=== PATIENT | male | born 1950 | race Caucasian/White ===

== ENCOUNTER 2017-10-17 17:13 | Emergency (ER) | payer OTHER ==
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
[2017-10-17 18:00] LABS: Basophils % (A) 0 %; Eosinophils # (A) 0.1 k/uL (0-0.7); Eosinophils % (A) 1 %; HCT 38.2 % (39.0-53.0); HGB 12.8 gm/dL (13.0-17.5); Lymphocytes # (A) 1.4 k/uL (1.0-4.8); Lymphocytes % (A) 13 %; MCH 28.5 pg (25.0-35.0); MCHC 33.4 g/dL (31.0-37.0); MCV 85.4 fL (80.0-100.0); Mean Platelet Volume 6.7; Monocytes # (A) 0.4 k/uL (0-1.0); Monocytes % (A) 4 %; Neutrophils # (A) 8.7 k/uL (1.3-7.7); Neutrophils % (A) 81 %; Platelet Count 209 k/uL (150-450); RBC 4.48 m/uL (4.30-5.90); WBC 10.8 k/uL (3.8-10.6)
[2017-10-17 18:09] LABS: INR 1.5 (<1.2); Partial Thromboplastin Time 26.4 sec (22.0-30.0)
[2017-10-17 18:17] LABS: ALT 34 U/L (21-72); AST 24 U/L (17-59); Albumin 3.8 g/dL (3.5-5.0); Alkaline Phosphatase 63 U/L (38-126); Anion Gap 8 mmol/L; Blood Urea Nitrogen 27 mg/dL (9-20); Carbon Dioxide 26 mmol/L (22-30); Chloride 103 mmol/L (98-107); Creatine Kinase 76 U/L (55-170); Glucose 102 mg/dL (74-99); Potassium 3.8 mmol/L (3.5-5.1); Sodium 137 mmol/L (137-145); Total Bilirubin 0.9 mg/dL (0.2-1.3); Total Protein 6.3 g/dL (6.3-8.2)
--- NOTE | 2017-10-17 19:16 | XR ---
EXAMINATION TYPE: XR femur bilateral DATE OF EXAM: 10/17/2017 CLINICAL HISTORY: Pain There is severe narrowing of the left hip joint space with flattening of the articular surface of the femoral head. This is consistent with chronic avascular necrosis. The remainder of the left femur is intact. There is narrowing of the medial joint space of the right knee with spurring. There is narro wing of right hip joint space. There is hypertrophic acetabular spurring bilaterally. 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 Right knee joint osteoarthritis. No fracture seen.
--- NOTE | 2017-10-17 19:17 | XR ---
EXAMINATION TYPE: XR knee complete bilateral DATE OF EXAM: 10/17/2017 COMPARISON: NONE HISTORY: Knee pain TECHNIQUE: 3 views each knee FINDINGS: There is narrowing of the medial joint space left knee with spurring of femoral and tibial condyles. There is slight narrowing of the medial joint space right knee. I see no fracture nor dislo cation. There is no sign of joint effusion. IMPRESSION: Bilateral hypertrophic osteoarthritis that is more severe in the medial joint space of th e left knee. No fracture.
--- NOTE | 2017-10-17 19:18 | XR ---
EXAMINATION TYPE: XR tibia fibula LT DATE OF EXAM: 10/17/2017 COMPARISON: NONE HISTORY: Pain TECHNIQUE: 4 views FINDINGS: There is hypertrophic osteoarthritis in the medial joint space of the knee. There is spurri ng on the patella. The tibia and fibula appear intact. I see no fracture. Ankle joint is anatomic. IMPRESSION: Osteoarthritis in the left knee. No fracture.
--- NOTE | 2017-10-17 19:19 | XR ---
EXAMINATION TYPE: XR ankle complete LT DATE OF EXAM: 10/17/2017 COMPARISON: NONE HISTORY: Ankle pain TECHNIQUE: 3 views FINDINGS: There are moderate plantar and Achilles calcaneal spurs. Ankle mortise is anatomic. I see n o fracture nor dislocation. IMPRESSION: Calcaneal spurring. No fracture.
[2017-10-17 20:45] VITALS: BP 133/83; PULSE 97; RESP 16; TEMP 97.9
== END 2017-10-17 20:54 | disposition home or self-care (01) ==
LOC: EC 17:13
DX: S83.92XA Sprain of unspecified site of left knee, initial encounter (principal); S70.12XA Contusion of left thigh, initial encounter; S70.11XA Contusion of right thigh, initial encounter; Z95.0 Presence of cardiac pacemaker; W20.8XXA Other cause of strike by thrown, projected or falling object, initial encounter; Y92.89 Other specified places as the place of occurrence of the external cause
CPT/HCPCS: 36415; 80053; 82550; 85025; 85610; 85730; 99284

== ENCOUNTER → 2017-11-05 | Outpatient (CLI) | payer OTHER ==
--- NOTE | 2017-11-05 22:20 | CT ---
EXAMINATION TYPE: CT lumbar spine wo con DATE OF EXAM: 11/05/2017 COMPARISON: None HISTORY: 67-year-old male Low back pain with burning down right leg. TECHNIQUE: Contiguous axial scanning of the lumbar spine without IV contrast. Coronal and sagittal re constructions performed. CT DLP: 1821 mGycm Automated exposure control for dose reduction was used. FINDINGS: Suspect a partially visualized 3.0 cm cyst posterior left kidney rather than mass. This can be furthe r evaluated with renal ultrasound. Vertebral body heights are preserved and alignment is maintained. Some bridging anterior endplate spo ndylosis in the lower thoracic spine. Multilevel degenerative disc disease, moderate to severe at L5- S1. Hypertrophic facet arthropathy throughout. There is congenital spinal canal stenosis at additional levels of ligamentum flavum thickening, bulgi ng discs, facet arthropathy, and ligamentum flavum calcification which further narrow the spinal cheng l at multiple levels. At T12-L1, facet arthropathy contributes to mild right neuroforaminal stenosis. No significant spinal canal stenosis. At L1-L2, mild bulging disc and facet degenerative change. Changes result in mild bilateral neurofora millicent stenosis without significant spinal canal stenosis. At L2-L3, bulging disc with hypertrophic facet arthropathy. At least mild spinal canal stenosis. Ther e is also moderate left and [id number] right neuroforaminal stenosis. At L3-L4, bulging disc with congenital spinal canal stenosis, hypertrophic facet arthropathy, and thi ckened and calcified ligamentum flavum causing severe spinal canal stenosis. There is also moderate t o severe bilateral neuroforaminal stenosis. At L4-L5, bulging disc with hypertrophic facet arthropathy and thickened and calcified ligamentum fla vum. Changes result in moderate to severe spinal canal stenosis with severe left greater than right n euroforaminal stenosis. At L5-S1, posterior disc osteophyte complex with hypertrophic facet arthropathy. While there is no si gnificant spinal canal stenosis, there is severe bilateral neuroforaminal stenosis. Superior endplate Schmorl's node at L2. IMPRESSION: 1. CONGENITAL SPINAL CANAL STENOSIS WITH SUPERIMPOSED MULTILEVEL DEGENERATIVE DISC DISEASE, HYPERTROP HIC FACET ARTHROPATHY, AND LEVELS OF THICKENED AND CALCIFIED LIGAMENTUM FLAVUM. 2. CHANGES RESULT IN SEVERE SPINAL CANAL STENOSIS AT L3-L4 AND MODERATE TO SEVERE AT L4-L5. 3. AT L3-L4, THERE IS MODERATE TO SEVERE BILATERAL NEUROFORAMINAL STENOSIS, SEVERE LEFT GREATER THAN RIGHT AT L4-L5, AND SEVERE BILATERAL AT L5-S1. 4. RECOMMEND KIDNEY ULTRASOUND TO CONFIRM CYSTIC NATURE OF THE 3 CM POSTERIOR LEFT RENAL LESION.
== END | disposition home or self-care (01) ==
LOC: RADCTMAIN 16:53
DX: M48.061 Spinal stenosis, lumbar region without neurogenic claudication (principal); M99.73 Connective tissue and disc stenosis of intervertebral foramina of lumbar region; M99.74 Connective tissue and disc stenosis of intervertebral foramina of sacral region; M51.36 Other intervertebral disc degeneration, lumbar region; M46.96 Unspecified inflammatory spondylopathy, lumbar region
CPT/HCPCS: 72131

== ENCOUNTER 2017-11-06 11:49 | Inpatient (IN) | payer OTHER, MEDICARE ==
[2017-11-06] MEDS ORDERED: VANCOMYCIN 2,000 MG in SODIUM CHLORIDE 0.9% 500 ML IVPB STA (12:34)
[2017-11-06 12:36] LABS: Basophils % (A) 0 %; Eosinophils # (A) 0.1 k/uL (0-0.7); Eosinophils % (A) 1 %; HCT 39.1 % (39.0-53.0); HGB 12.1 gm/dL (13.0-17.5); Hypochromasia Slight; Lymphocytes # (A) 0.5 k/uL (1.0-4.8); Lymphocytes % (A) 3 %; MCH 27.8 pg (25.0-35.0); MCHC 30.9 g/dL (31.0-37.0); MCV 89.8 fL (80.0-100.0); Mean Platelet Volume 6.3; Monocytes # (A) 0.3 k/uL (0-1.0); Monocytes % (A) 2 %; Neutrophils # (A) 14.7 k/uL (1.3-7.7); Neutrophils % (A) 94 %; Platelet Count 246 k/uL (150-450); RBC 4.36 m/uL (4.30-5.90); RDW 14.1 % (11.5-15.5); WBC 15.7 k/uL (3.8-10.6)
[2017-11-06] MEDS ORDERED: VANCOMYCIN IV PER PHARMACY 1 EACH MISC MISCELLANE PRN (12:37)
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
[2017-11-06 12:39] LABS: ALT 45 U/L (21-72); AST 41 U/L (17-59); Albumin 3.9 g/dL (3.5-5.0); Alkaline Phosphatase 74 U/L (38-126); Anion Gap 9 mmol/L; Blood Urea Nitrogen 31 mg/dL (9-20); Calcium 9.3 mg/dL (8.4-10.2); Carbon Dioxide 25 mmol/L (22-30); Chloride 103 mmol/L (98-107); Glucose 123 mg/dL (74-99); Potassium 4.5 mmol/L (3.5-5.1); Sodium 137 mmol/L (137-145); Total Bilirubin 0.9 mg/dL (0.2-1.3); Total Protein 6.7 g/dL (6.3-8.2)
[2017-11-06 12:40] LABS: INR 3.6 (<1.2); Partial Thromboplastin Time 33.4 sec (22.0-30.0); Prothrombin Time 32.6 sec (9.0-12.0)
[2017-11-06 12:46] LABS: Creatine Kinase 24 U/L (55-170)
[2017-11-06 13:00] LABS: Creatine Kinase MB 0.6 ng/mL (0.0-2.4); Troponin I <0.012 ng/mL (0.000-0.034)
[2017-11-06] MEDS: DILTIAZEM 50 MG in SODIUM CHLORIDE 0.9% 40 ML IV SCH ×3 (13:07→21:06)
--- NOTE | 2017-11-06 13:07 | XR ---
EXAMINATION TYPE: XR chest 2V DATE OF EXAM: 11/06/2017 COMPARISON: NONE TECHNIQUE: PA and lateral views submitted. HISTORY: difficulty breathing FINDINGS: The lungs are clear and there is no pneumothorax, pleural effusion, or focal pneumonia. Subsegmenta l changes at the right lung base with elevated right hemidiaphragm. Cardiac device noted and there is arthropathy of the shoulders. IMPRESSION: 1. Right basilar atelectasis or early infiltrate. 2. Cardiomegaly
--- NOTE | 2017-11-06 13:29 | XR ---
EXAMINATION TYPE: XR tibia fibula RT DATE OF EXAM: 11/06/2017 COMPARISON: NONE HISTORY: Pain TECHNIQUE: Two views are submitted. FINDINGS: The osseous structures are intact. Arthropathy of the knee joint.. Soft tissue calcifications noted. No destructive changes. Soft tissue edema noted. IMPRESSION: 1. No acute osseous abnormality. Diffuse soft tissue edema.
[2017-11-06] MEDS ORDERED: oxyCODONE-APAP 10-325MG 1 EACH TAB PO STA (14:00)
[2017-11-06] MEDS ORDERED: CEFEPIME 2 GM in SODIUM CHLORIDE 0.9% 50 ML IVPB STA (14:11)
[2017-11-06] MEDS ORDERED: AZITHROMYCIN 500 MG in DEXTROSE 5% IN WATER 250 ML IVPB STA ×2 (14:11)
[2017-11-06] MEDS ORDERED: ONDANSETRON 4 MG/2 ML VIAL IVP PRN (14:14)
[2017-11-06] MEDS ORDERED: NALOXONE 0.4 MG/ML 1 ML VIAL IV PRN (14:14)
[2017-11-06] MEDS: SODIUM CHLORIDE 0.9% 1,000 ML IV SCH ×2 (14:24→21:07)
[2017-11-06] MEDS: oxyCODONE-APAP 5-325MG 1 EACH TAB PO PRN (20:31)
[2017-11-06] MEDS ORDERED: OXYMETAZOLINE 0.05% NASL SPRAY 1 SPRAY BOTTLE NASAL PRN (20:52)
[2017-11-06] MEDS: VANCOMYCIN 2,250 MG in SODIUM CHLORIDE 0.9% 500 ML IVPB SCH (21:06)
[2017-11-06] MEDS: METOPROLOL TARTRATE 25 MG TAB PO SCH (21:09)
--- NOTE | 2017-11-06 23:10 | P.HPIM ---
History of Present Illness H&P Date: 11/06/17 Chief Complaint: Shortness of breath Patient is a 67-year-old male with a known history of paroxysmal atrial fibrillation since 2016 on anticoagulation with Coumadin, sick sinus syndrome status post pacemaker placement in 2016, lumbar disc degenerative disease and multiple other medical problems came to the hospital with complaints of shortness of breath. Patient has been having issues with atrial fibrillation for the past 6-7 weeks and is scheduled for cardioversion on 11/08/2017. Last night patient became greenish and was having worsening shortness of breath. Shortness of breath gets worse with leaning over. Patient has been hyperventilating and shaky and felt very cold. Patient came to the hospital by his . Patient also reports pain and warmth to his right lower extremity. He states that he had a limited traumatic accident 3 weeks ago while repairing under the car.. Denies any constitutional symptoms. Denies any chest pain. No nausea vomiting or abdominal pain. EKG showed atrial flutter with 2-1 conduction Chest x-ray right basilar atelectasis or early infiltrate X-ray of right lower extremity no acute osseous abnormality. Diffuse soft tissue edema. WBC 15.7, INR 3.6 and lactic acid 2.2 Review of Systems Constitutional: Patient did have shakiness and felt cold. No fever. No generalized weakness or weight loss. Abdomen: Patient denied nausea vomiting and diarrhea and abdominal pain. Cardiovascular: Patient denies any chest pain. patient does have shortness of breath and palpitations. Respiratory: patient denied any cough is from production. No shortness of breath Neurologic: Patient denied any numbness or tingling headache. Musculoskeletal: Patient denies any complaints of joint swelling or deformity. Right lower extremities swelling. Skin: Negative Psychiatric: Negative Endocrine: No heat or cold intolerance. No recent weight gain. Genitourinary: No dysuria or hematuria. All other 14 point ROS negative except the above Past Medical History Past Medical History: Atrial Fibrillation, Hypertension Additional Past Medical History / Comment(s): Paroxysmal Afib since 2016 but pt states last 7 weeks has been constant afib/was to have cardioversion on 11/12/17, has AICD/pacer and pt states that the bottom lead on device is NOT MRI SAFE, leaky heart valve, 10/17/17 bilateral leg injuries d/t truck on hoist falling down on legs/bilateral leg wounds healing and has knee pain-told he will need L knee replacement-has been receiving injections, chronic low back pain/spinal stenosis/crushed discs d/t accident and since August 2017 has been having burning pain/edema down R leg and had cat scan yesterday d/t this, after back surgery d/ t this injury pt had to learn to walk again, "bird flu" in 2016-had bilateral pneumonias-lengthy hospitalization-was in ICU on bipap and it damaged his lungs , sinusitis History of Any Multi-Drug Resistant Organisms: None Reported Past Surgical History: Back Surgery, Pacemaker, Tonsillectomy Additional Past Surgical History / Comment(s): AICD/pacer, 1988 back surgery d/ t injury, 2015 bronchoscopy with lavage, deviated septum surgery, cyst removed from back Past Anesthesia/Blood Transfusion Reactions: No Reported Reaction Type of Cardiac Device: Permanent Pacemaker, AICD Device Placement Date:: 12/07/15 Smoking Status: Never smoker - Past Family History Father Family Medical History: No Reported History Additional Family Medical History / Comment(s): Father lived to be 92 yrs old. Mother Family Medical History: Memory Impairment Additional Family Medical History / Comment(s): Mother is 99 years old-will be 100 next week and still lives alone. She has alittle short term memory problems. Medications and Allergies Home Medications Medication Instructions Recorded Confirmed Type Losartan [Cozaar] 25 mg PO BID 10/17/17 11/06/17 History Metoprolol Tartrate [Lopressor] 25 mg PO BID 10/17/17 11/06/17 History Naproxen 500 mg PO BID PRN 10/17/17 11/06/17 History Warfarin [Coumadin] 5 mg PO SUWE 10/17/17 11/06/17 History oxyCODONE-APAP 5-325MG [Percocet 1 tab PO TID PRN 10/17/17 11/06/17 History 5-325 mg] Furosemide [Lasix] 20 mg PO BID 11/06/17 11/06/17 History Potassium Chloride ER [K-Dur 10] 10 meq PO DAILY 11/06/17 11/06/17 History Warfarin [Coumadin] 5 mg PO DIRECTED 11/06/17 11/06/17 History Allergies Allergy/AdvReac Type Severity Reaction Status Date / Time No Known Allergies Allergy Verified 11/06/17 12:14 Physical Exam Vitals: Vital Signs Temp Pulse Pulse Resp BP BP Pulse Ox 11/06/17 20:00 99.2 F 140 H 22 108/74 100 11/06/17 18:30 99.1 F 138 H 16 123/84 96 11/06/17 18:18 98.1 F 137 H 19 117/73 99 11/06/17 16:00 138 H 18 120/88 97 11/06/17 15:00 138 H 18 108/69 96 11/06/17 14:00 138 H 18 121/74 97 11/06/17 13:50 140 H 18 127/77 99 11/06/17 13:09 141 H 22 124/74 99 11/06/17 11:54 99.1 F 141 H 20 146/86 99 Intake and Output 11/06/17 11/06/17 11/06/17 06:59 14:59 22:59 Intake Total 79.833 Balance 79.833 Intake: Intake, IV Titration 79.833 Amount Diltiazem 50 mg In Sodium 79.833 Chloride 0.9% 40 ml @ 10 MG/HR 10 mls/hr IV .Q5H [facility] Rx#:[id number] Other: Voiding Method Urinal Weight 136.078 kg Results CBC & Chem 7: 11/06/17 12:12 11/06/17 12:12 Labs: Abnormal Lab Results - Last 24 Hours (Table) 11/06/17 11/06/17 11/06/17 Range/Units 12:12 12:12 12:12 WBC 15.7 H (3.8-10.6) k/uL Hgb 12.1 L (13.0-17.5) gm/dL MCHC 30.9 L (31.0-37.0) g/dL Neutrophils # 14.7 H (1.3-7.7) k/uL Lymphocytes # 0.5 L (1.0-4.8) k/uL PT (9.0-12.0) sec INR (<1.2) APTT (22.0-30.0) sec BUN 31 H (9-20) mg/dL Glucose 123 H (74-99) mg/dL Plasma Lactic Acid Jimenez (0.7-2.0) mmol/L Total Creatine Kinase 24 L (55-170) U/L 11/06/17 11/06/17 Range/Units 12:12 20:46 WBC (3.8-10.6) k/uL Hgb (13.0-17.5) gm/dL MCHC (31.0-37.0) g/dL Neutrophils # (1.3-7.7) k/uL Lymphocytes # (1.0-4.8) k/uL PT 32.6 H (9.0-12.0) sec INR 3.6 H (<1.2) APTT 33.4 H (22.0-30.0) sec BUN (9-20) mg/dL Glucose (74-99) mg/dL Plasma Lactic Acid Jimenez 2.1 H* (0.7-2.0) mmol/L Total Creatine Kinase (55-170) U/L Thrombosis Risk Factor Assmnt - DVT/VTE Prophylaxis DVT/VTE Prophylaxis: Pharmacologic Prophylaxis ordered - Choose All That Apply Any of the Below Risk Factors Present?: Yes Each Factor Represents 1 point: Obesity (BMI >25) Other Risk Factors: Yes Each Risk Factor Represents 2 Points: Age 61-74 years Other congenital or acquired thrombophilia - If yes, enter type in comment: No Thrombosis Risk Factor Assessment Total Risk Factor Score: 3 Thrombosis Risk Factor Assessment Level: Moderate Risk Assessment and Plan Assessment: Atrial fibrillation with rapid regular rate Atrial flutter with 2:1 conduction Sepsis secondary to right lower activity cellulitis with recent trauma Paroxysmal atrial fibrillation on anticoagulation with warfarin Supratherapeutic INR level III.6 Chronic lower back pain, spinal stenosis and compressive disc due to accident Sick Sinus syndrome. Status post pacemaker placement Morbid obesity BMI 43.0 plan: Patient is currently started on Cardizem drip. Patient was given a dose of vancomycin and cefepime while in the ER. We will continue the vancomycin and follow up closely. Continue the pain medication with Percocet 5. Continue the telemetry monitoring. Cardiology was consulted. Further recommendations based on the clinical course. Prognosis is guarded. Discussed with the patient and his at bedside in detail. Time with Patient: Greater than 30
[2017-11-07 00:54] LABS: Glucose,Whole Blood 127 mg/dL (75-99)
[2017-11-07] MEDS: DILTIAZEM 50 MG in SODIUM CHLORIDE 0.9% 40 ML IV SCH ×4 (04:07→21:03)
[2017-11-07] MEDS: Acetaminophen-Codeine 300-30mg TAB PO PRN (04:10)
[2017-11-07 06:23] LABS: Basophils % (A) 0 %; Eosinophils % (A) 0 %; HCT 35.7 % (39.0-53.0); HGB 11.1 gm/dL (13.0-17.5); Hypochromasia Moderate; Lymphocytes # (A) 0.6 k/uL (1.0-4.8); Lymphocytes % (A) 5 %; MCH 28.5 pg (25.0-35.0); MCV 91.8 fL (80.0-100.0); Mean Platelet Volume 6.3; Monocytes # (A) 0.4 k/uL (0-1.0); Monocytes % (A) 4 %; Neutrophils # (A) 10.3 k/uL (1.3-7.7); Neutrophils % (A) 90 %; Platelet Count 195 k/uL (150-450); RBC 3.89 m/uL (4.30-5.90); WBC 11.5 k/uL (3.8-10.6)
[2017-11-07 06:43] LABS: Anion Gap 6 mmol/L; Blood Urea Nitrogen 27 mg/dL (9-20); Calcium 8.5 mg/dL (8.4-10.2); Carbon Dioxide 24 mmol/L (22-30); Chloride 105 mmol/L (98-107); Glucose 120 mg/dL (74-99); Magnesium 1.8 mg/dL (1.6-2.3); Potassium 4.1 mmol/L (3.5-5.1); Sodium 135 mmol/L (137-145)
[2017-11-07] MEDS: SODIUM CHLORIDE 0.9% 1,000 ML IV SCH ×3 (06:45→15:45)
[2017-11-07] MEDS: VANCOMYCIN 2,250 MG in SODIUM CHLORIDE 0.9% 500 ML IVPB SCH ×2 (08:32→21:04)
[2017-11-07] MEDS: METOPROLOL TARTRATE 25 MG TAB PO SCH ×3 (08:33→21:02)
--- NOTE | 2017-11-07 10:53 | P.CRDCN ---
History of Present Illness Consult date: 11/07/17 Requesting physician: Bailey Turcios Reason for Consult (text): atrial flutter Chief complaint: Shortness of breath, fever or chills History of present illness: This is a pleasant 67-year-old gentleman who follows with Dr. Curry in the office. He has a known history of hypertension, hyperlipidemia, nicotine dependence, prior pacemaker implantation, most recent Eve scan stress test according to the office note was performed in April of this year which revealed a small anterior scar no evidence of any reversible ischemia paroxysmal atrial fibrillation, according to the patient is been persistently in atrial fibrillation for the past several weeks and is scheduled to undergo cardioversion by Dr. Curry next week. Pacemaker was interrogated in the office and did confirm that the patient is in fact continuously in A. fib with a heart rate of 120 to 1:30. He presents to the hospital on this occasion with symptoms of shortness of breath with associated fever and chills. Chest x-ray on admission showed right basilar atelectasis and early infiltrate. X-ray of the tibial and fibula was performed which did not reveal any acute osseous abnormality. Diffuse soft tissue edema noted. EKG on presentation here showed typical atrial flutter with a rapid ventricular response. I pressure 130/80 with a heart rate in the 140s, 98% on 2 L of oxygen. Temperature on arrival 99.1, it did go up to 100.3, 97.5 this morning. Blood cell count 15.7 on admission, 11.5 this morning, hemoglobin 11.1, platelet count 195. INR 3.6. Sodium 135, potassium 4.1, BUN 27, creatinine 0.7. Magnesium level I.8. Troponin 0.012. At the time of my examination this morning, patient states she still feels mildly short of breath, he has significant bilateral peripheral edema with evidence of possible cellulitis on the right baer area as well as the upper right thigh area near the groin. Past Medical History Past Medical History: Atrial Fibrillation, Hypertension Additional Past Medical History / Comment(s): Paroxysmal Afib since 2015 but pt states last 7 weeks has been constant afib/was to have cardioversion on 11/12/17, has AICD/pacer and pt states that the bottom lead on device is NOT MRI SAFE, leaky heart valve, 10/17/17 bilateral leg injuries d/t truck on hoist falling down on legs/bilateral leg wounds healing and has knee pain-told he will need L knee replacement-has been receiving injections, chronic low back pain/spinal stenosis/crushed discs d/t accident and since August 2017 has been having burning pain/edema down R leg and had cat scan yesterday d/t this, after back surgery d/ t this injury pt had to learn to walk again, "bird flu" in 2016-had bilateral pneumonias-lengthy hospitalization-was in ICU on bipap and it damaged his lungs , sinusitis History of Any Multi-Drug Resistant Organisms: None Reported Past Surgical History: Back Surgery, Pacemaker, Tonsillectomy Additional Past Surgical History / Comment(s): AICD/pacer, 1988 back surgery d/ t injury, 2015 bronchoscopy with lavage, deviated septum surgery, cyst removed from back Past Anesthesia/Blood Transfusion Reactions: No Reported Reaction Type of Cardiac Device: Permanent Pacemaker, AICD Device Placement Date:: 12/07/15 Smoking Status: Never smoker - Past Family History Father Family Medical History: No Reported History Additional Family Medical History / Comment(s): Father lived to be 92 yrs old. Mother Family Medical History: Memory Impairment Additional Family Medical History / Comment(s): Mother is 99 years old-will be 100 next week and still lives alone. She has alittle short term memory problems. Medications and Allergies Home Medications Medication Instructions Recorded Confirmed Type Losartan [Cozaar] 25 mg PO BID 10/17/17 11/06/17 History Metoprolol Tartrate [Lopressor] 25 mg PO BID 10/17/17 11/06/17 History Naproxen 500 mg PO BID PRN 10/17/17 11/06/17 History Warfarin [Coumadin] 5 mg PO SUWE 10/17/17 11/06/17 History oxyCODONE-APAP 5-325MG [Percocet 1 tab PO TID PRN 10/17/17 11/06/17 History 5-325 mg] Furosemide [Lasix] 20 mg PO BID 11/06/17 11/06/17 History Potassium Chloride ER [K-Dur 10] 10 meq PO DAILY 11/06/17 11/06/17 History Warfarin [Coumadin] 5 mg PO DIRECTED 11/06/17 11/06/17 History Allergies Allergy/AdvReac Type Severity Reaction Status Date / Time No Known Allergies Allergy Verified 11/06/17 12:14 Physical Exam Vitals: Vital Signs Temp Pulse Pulse Resp BP BP Pulse Ox 11/07/17 08:36 97.5 F L 138 H 16 129/85 98 11/07/17 04:00 100.3 F H 140 H 19 130/89 98 11/07/17 00:00 98.6 F 131 H 20 124/75 98 11/06/17 20:00 99.2 F 140 H 22 108/74 100 11/06/17 18:30 99.1 F 138 H 16 123/84 96 11/06/17 18:18 98.1 F 137 H 19 117/73 99 11/06/17 16:00 138 H 18 120/88 97 11/06/17 15:00 138 H 18 108/69 96 11/06/17 14:00 138 H 18 121/74 97 11/06/17 13:50 140 H 18 127/77 99 11/06/17 13:09 141 H 22 124/74 99 11/06/17 11:54 99.1 F 141 H 20 146/86 99 Intake and Output 11/06/17 11/07/17 11/07/17 22:59 06:59 14:59 Intake Total 79.833 50 0 Output Total 350 Balance 79.833 -300 0 Intake: Intake, IV Titration 79.833 50 Amount Diltiazem 50 mg In Sodium 79.833 50 Chloride 0.9% 40 ml @ 10 MG/HR 10 mls/hr IV .Q5H [facility] Rx#:[id number] Oral 0 Output: Urine 350 Other: Voiding Method Urinal Urinal Urinal # Voids 0 3 Weight 135.5 kg PHYSICAL EXAMINATION: GENERAL: 87-year-old gentleman in no acute distress at the time of my examination HEENT: Head is atraumatic, normocephalic. Pupils equal, round. Sclera anicteric. Conjunctiva are clear. Mucous membranes of the mouth are moist. Neck is supple. There is no elevated jugular venous pressure. No carotid bruit is heard. HEART EXAMINATION: R S1 and S2 irregularly irregular a systolic murmur is heard. CHEST EXAMINATION: His reveal diminished air entry to bilateral bases. ABDOMEN: Soft, obese, nontender. Bowel sounds are heard. No organomegaly noted. EXTREMITIES:[ 1+ peripheral pulses with 2+ evidence of peripheral edema , significant redness in the right baer and right thigh and groin area NEUROLOGIC patient is awake, alert and oriented X3. . Results 11/07/17 06:04 11/07/17 06:04 Cardiac Enzymes 11/06/17 11/06/17 Range/Units 12:12 12:12 AST 41 (17-59) U/L CK-MB (CK-2) 0.6 (0.0-2.4) ng/mL Troponin I <0.012 (0.000-0.034) ng/mL Coagulation 11/06/17 Range/Units 12:12 PT 32.6 H (9.0-12.0) sec APTT 33.4 H (22.0-30.0) sec CBC 11/06/17 11/07/17 Range/Units 12:12 06:04 WBC 15.7 H 11.5 H (3.8-10.6) k/uL RBC 4.36 3.89 L (4.30-5.90) m/uL Hgb 12.1 L 11.1 L (13.0-17.5) gm/dL Hct 39.1 35.7 L (39.0-53.0) % Plt Count 246 195 (150-450) k/uL Comprehensive Metabolic Panel 11/06/17 11/07/17 Range/Units 12:12 06:04 Sodium 137 135 L (137-145) mmol/L Potassium 4.5 4.1 (3.5-5.1) mmol/L Chloride 103 105 (98-107) mmol/L Carbon Dioxide 25 24 (22-30) mmol/L BUN 31 H 27 H (9-20) mg/dL Creatinine 0.70 0.70 (0.66-1.25) mg/dL Glucose 123 H 120 H (74-99) mg/dL Calcium 9.3 8.5 (8.4-10.2) mg/dL AST 41 (17-59) U/L ALT 45 (21-72) U/L Alkaline Phosphatase 74 (38-126) U/L Total Protein 6.7 (6.3-8.2) g/dL Albumin 3.9 (3.5-5.0) g/dL Current Medications Generic Name Dose Route Start Last Admin Trade Name Freq PRN Reason Stop Dose Admin Acetaminophen/Codeine Phosphate 1 each 11/06/17 14:14 11/07/17 04:10 Tylenol #3 PO 1 each Q4HR PRN Administration Moderate Pain Diltiazem HCl 50 mg/ Sodium 50 mls @ 10 mls/hr 11/06/17 12:45 11/07/17 04:07 Chloride IV 10 mg/hr .Q5H [facility] 10 mls/hr Administration 10 MG/HR Sodium Chloride 1,000 mls @ 20 mls/hr 11/06/17 14:15 11/07/17 06:45 Saline 0.9% IV 20 mls/hr .Q24H [facility] Administration Vancomycin HCl 2,250 mg/ 500 mls @ 167 mls/hr 11/06/17 21:00 11/07/17 08:32 Sodium Chloride IVPB 167 mls/hr Q12HR [facility] Administration Sodium Chloride 1,000 mls @ 100 mls/hr 11/06/17 21:00 11/07/17 06:45 Saline 0.9% IV 100 mls/hr .Q10H [facility] Administration Metoprolol Tartrate 25 mg 11/06/17 21:00 11/07/17 08:33 Lopressor PO 25 mg BID [facility] Administration Naloxone HCl 0.2 mg 11/06/17 14:14 Narcan IV Q2M PRN Opioid Reversal Ondansetron HCl 4 mg 11/06/17 14:14 Zofran IVP Q8HR PRN Nausea And Vomiting Oxycodone/Acetaminophen 1 each 11/06/17 14:14 11/06/17 20:31 Percocet 5-325 PO 1 each Q4HR PRN Administration Severe Pain Oxymetazoline HCl 2 spray 11/06/17 20:52 11/07/17 00:43 Afrin 0.05% Nasal [place] NASAL 2 spray BID PRN Administration Sinus Symptoms Intake and Output 11/06/17 11/07/17 11/07/17 22:59 06:59 14:59 Intake Total 79.833 50 0 Output Total 350 Balance 79.833 -300 0 Intake: Intake, IV Titration 79.833 50 Amount Diltiazem 50 mg In Sodium 79.833 50 Chloride 0.9% 40 ml @ 10 MG/HR 10 mls/hr IV .Q5H [facility] Rx#:[id number] Oral 0 Output: Urine 350 Other: Voiding Method Urinal Urinal Urinal # Voids 0 3 Weight 135.5 kg 11/07/17 06:04 11/07/17 06:04 EKG Interpretations (text) EKG shows atrial flutter with rapid ventricular response Assessment and Plan Plan: Assessment and plan #1 atrial flutter with rapid ventricular response #2 history of paroxysmal atrial fibrillation, according to recent device check in the office, patient has chronically been in A. fib with a heart rate in the 120s for the past several weeks. On Coumadin for anticoagulation, INR 3.6 #3 sepsis, likely secondary to cellulitis of the right lower extremity #4 hypertension #5 hyperlipidemia #6 history of pacemaker implantation, dual-chamber Biotronik for sick sinus syndrome in 2016 #7 obesity Plan We will obtain an echocardiogram with Doppler study. Patient has also been initiated on IV antibiotics for his cellulitis. He is currently on IV Cardizem at 10 mg per hour, as well as metoprolol 25 mg by mouth twice a day. We will increase the metoprolol for more optimal heart rate control. Check TSH level. Obtain BNP. We will also speak with Dr. Curry regarding the timing of the cardioversion, further recommendations to follow. DNP note has been reviewed, I agree with a documented findings and plan of care. Patient was seen and examined.
[2017-11-07] MEDS: oxyCODONE-APAP 5-325MG 1 EACH TAB PO PRN ×2 (12:27→21:10)
--- NOTE | 2017-11-07 12:27 | ECHOF ---
Referral Reason:afib MEASUREMENTS -------- HEIGHT: 152.4 cm WEIGHT: 135.2 kg BP: RVIDd: 3.5 cm (< 3.3) IVSd: 1.3 cm (0.6 - 1.1) LVIDd: 4.6 cm (3.9 - 5.3) LVPWd: 1.5 cm (0.6 - 1.1) IVSs: 1.6 cm LVIDs: 4.2 cm LVPWs: 1.4 cm LA Diam: 3.6 cm (2.7 - 3.8) Ao Diam: 3.3 cm (2.0 - 3.7) AV Cusp: 2.1 cm (1.5 - 2.6) LA Diam: 3.6 cm (2.7 - 3.8) MV EXCURSION: 26.551 mm (> 18.000) MV EF SLOPE: 169 mm/s (70 - 150) EPSS: 0.4 cm RAP: 5.00 mmHg RVSP: 29.66 mmHg FINDINGS -------- Resting tachycardia (HR>100bpm). Morbid Obesity This was a techncally difficult study with suboptimal views, , Lumason utilized for enhancement of images. The left ventricular size is normal. There is moderate concentric left ventricular hypertrophy. T here is severe global hypokinesis of LV . Overall left ventricular systolic function is severely im paired with, an EF between 20 - 25 %. The right ventricle is normal in size. The left atrium is moderately dilated. The right atrial size is normal. 5.0mg OF Lumason UTLIZED: 2 OR MORE WALL SEGMENTS NOT VISUALIZED. The aortic valve is trileaflet, and appears structurally normal. No aortic stenosis or regurgitation. The mitral valve was not well visualized. Mild mitral regurgitation is present. Mild tricuspid regurgitation present. There is no evidence of pulmonary hypertension. The right v entricular systolic pressure, as measured by Doppler, is 29.66mmHg. The pulmonic valve was not well visualized. Trace/mild (physiologic) pulmonic regurgitation. The aortic root size is normal. There is no pericardial effusion. CONCLUSIONS -------- 1. Resting tachycardia (HR>100bpm). 2. Morbid Obesity 3. This was a techncally difficult study with suboptimal views, , Lumason utilized for enhancement of images. 4. The left ventricular size is normal. 5. There is moderate concentric left ventricular hypertrophy. 6. There is severe global hypokinesis of LV . 7. Overall left ventricular systolic function is severely impaired with, an EF between 20 - 25 %. 8. The left atrium is moderately dilated. 9. 5.0mg OF Lumason UTLIZED: 2 OR MORE WALL SEGMENTS NOT VISUALIZED. 10. The aortic valve is trileaflet, and appears structurally normal. No aortic stenosis or regurgitat ion. 11. Mild mitral regurgitation is present. 12. Mild tricuspid regurgitation present. 13. There is no evidence of pulmonary hypertension. 14. Trace/mild (physiologic) pulmonic regurgitation. 15. The aortic root size is normal. 16. There is no pericardial effusion. MILK CONDENSER: Yolande Mahoney RDCS
[2017-11-07 12:46] LABS: INR 2.6 (<1.2); Prothrombin Time 23.4 sec (9.0-12.0)
[2017-11-07] MEDS ORDERED: PROPOFOL 10 MG/ML 20 ML VIAL IV ONE (13:45)
--- NOTE | 2017-11-07 14:17 | CE ---
CARDIAC ELECTROPHYSIOLOGY REPORT DATE OF SERVICE: 11/07/2017 PERFORMING PHYSICIAN: Nicko Rush MD PROCEDURE PERFORMED: Cardioversion. INDICATION: This is a pleasant 67-year-old gentleman who presented to the hospital with shortness of breath and was found to be in atrial fibrillation with RVR as well as congestive heart failure. He is known to have paroxysmal atrial fibrillation, on oral anticoagulation was Coumadin and Coumadin and the INR was therapeutic. He also does have a pacemaker. COMPLICATION: None. The procedure was performed under general anesthesia. PROCEDURE DESCRIPTION: General anesthesia was initiated using propofol with SWITCH TECHNICIAN as well as anesthesiologist in the room. Subsequently, we cardioverted the patient from atrial fibrillation to normal sinus mechanism using 100 joules on first attempt. CONCLUSION: Successful cardioversion of atrial flutter/atrial fibrillation to normal sinus mechanism using 100 joules on first attempt. MMODL / IJN: [id number] /
[2017-11-07] MEDS ORDERED: WARFARIN 5 MG TAB PO SCH ×3 (18:00→21:02)
[2017-11-07] MEDS ORDERED: ALPRAZolam 0.25 MG TAB PO PRN (21:01)
--- NOTE | 2017-11-07 23:40 | P.PN ---
Subjective Progress Note Date: 11/07/17 Principal diagnosis: Atrial fibrillation with RVR Right lower extremity cellulitis Patient is a 67-year-old male with a known history of paroxysmal atrial fibrillation since 2016 on anticoagulation with Coumadin, sick sinus syndrome status post pacemaker placement in 2016, lumbar disc degenerative disease and multiple other medical problems came to the hospital with complaints of shortness of breath. Patient has been having issues with atrial fibrillation for the past 6-7 weeks and is scheduled for cardioversion on 11/08/2017. Last night patient became greenish and was having worsening shortness of breath. Shortness of breath gets worse with leaning over. Patient has been hyperventilating and shaky and felt very cold. Patient came to the hospital by his . Patient also reports pain and warmth to his right lower extremity. He states that he had a limited traumatic accident 3 weeks ago while repairing under the car.. Denies any constitutional symptoms. Denies any chest pain. No nausea vomiting or abdominal pain. EKG showed atrial flutter with 2-1 conduction Chest x-ray right basilar atelectasis or early infiltrate X-ray of right lower extremity no acute osseous abnormality. Diffuse soft tissue edema. WBC 15.7, INR 3.6 and lactic acid 2.2 11/07/2017 Patient denied any comes of chest pain. Shortness of breath is improved. Patient underwent cardioversion with successful conversion to sinus rhythm. Heart rate is controlled. 2-D echocardiogram Showed ejection fraction 20 to 25% . No nausea vomiting or abdominal pain. Right lower extremity swelling is improving as well. No other acute overnight issues. Objective - Vital Signs Vital signs: Vital Signs Temp 97.7 F 11/07/17 12:01 Pulse 81 11/07/17 14:32 Resp 16 11/07/17 14:32 BP 109/57 11/07/17 14:32 Pulse Ox 98 11/07/17 14:32 Intake & Output 11/06/17 11/07/17 11/07/17 18:59 06:59 18:59 Intake Total 34 95.833 0 Output Total 350 Balance 34 -254.167 0 Weight 136.078 kg 135.5 kg Intake: Intake, IV Titration 34 95.833 Amount Diltiazem 50 mg In Sodium 34 95.833 Chloride 0.9% 40 ml @ 10 MG/HR 10 mls/hr IV .[facility] Rx#:[id number] Oral 0 Output: Urine 350 Other: Voiding Method Urinal Urinal # Voids 3 - Exam PHYSICAL EXAMINATION: Patient is lying in the bed comfortably, no acute distress, awake alert and oriented.. HEENT: Normocephalic. Neck is supple. Pupils reactive. Nostrils clear. Oral cavity is moist. Ears reveal no drainage. Neck reveals no JVD, carotid bruits, or thyromegaly. CHEST EXAMINATION: Trachea is central. Symmetrical expansion. Lung lebron clear to auscultation and percussion. CARDIAC: Normal S1, S2 with no gallops. No murmurs ABDOMEN: Soft. Bowel sounds normal. No organomegaly. No abdominal bruits. Extremities: Right lower extremity redness and swelling with scar fine at the time Left lower extremity having wound lacerations healing well. Neurologically awake, alert, oriented x3 with well-coordinated movements. No focal deficits noted Skin: No rash or skin lesions. Psychiatric: Coperative. Nonsuicidal Musculoskeletal: No joint swelling or deformity. Normal range of motion. - Labs CBC & Chem 7: 11/07/17 06:04 11/07/17 06:04 Labs: Abnormal Lab Results - Last 24 Hours (Table) 11/06/17 11/07/17 11/07/17 Range/Units 20:46 00:50 06:04 WBC (3.8-10.6) k/uL RBC (4.30-5.90) m/uL Hgb (13.0-17.5) gm/dL Hct (39.0-53.0) % Neutrophils # (1.3-7.7) k/uL Lymphocytes # (1.0-4.8) k/uL PT (9.0-12.0) sec INR (<1.2) Sodium 135 L (137-145) mmol/L BUN 27 H (9-20) mg/dL Glucose 120 H (74-99) mg/dL POC Glucose (mg/dL) 127 H (75-99) mg/dL Plasma Lactic Acid Jimenez 2.1 H* (0.7-2.0) mmol/L 11/07/17 11/07/17 11/07/17 Range/Units 06:04 06:04 12:23 WBC 11.5 H (3.8-10.6) k/uL RBC 3.89 L (4.30-5.90) m/uL Hgb 11.1 L (13.0-17.5) gm/dL Hct 35.7 L (39.0-53.0) % Neutrophils # 10.3 H (1.3-7.7) k/uL Lymphocytes # 0.6 L (1.0-4.8) k/uL PT 23.4 H (9.0-12.0) sec INR 2.6 H (<1.2) Sodium (137-145) mmol/L BUN (9-20) mg/dL Glucose (74-99) mg/dL POC Glucose (mg/dL) (75-99) mg/dL Plasma Lactic Acid Jimenez 0.6 L (0.7-2.0) mmol/L Microbiology - Last 24 Hours (Table) 11/06/17 12:12 Blood Culture Gram Stain - Preliminary Blood 11/06/17 12:12 Blood Culture - Final Blood Assessment and Plan Assessment: Atrial fibrillation with rapid regular rate. Off Cardizem drip. Status post cardioversion. Currently in sinus rhythm. Atrial flutter with 2:1 conduction Sepsis secondary to right lower activity cellulitis with recent trauma Paroxysmal atrial fibrillation on anticoagulation with warfarin Supratherapeutic INR level III.6 Chronic lower back pain, spinal stenosis and compressive disc due to accident Sick Sinus syndrome. Status post pacemaker placement Morbid obesity BMI 43.0 plan: Patient is currently started on Cardizem drip. Patient was given a dose of vancomycin and cefepime while in the ER. We will continue the vancomycin and follow up closely. Continue the pain medication with Percocet 5. Continue the telemetry monitoring. Coumadin was restarted. Cardiology was consulted. Further recommendations based on the clinical course. Prognosis is guarded. Discussed with the patient and his at bedside in detail. Time with Patient: Greater than 30
[2017-11-08] MEDS: Acetaminophen-Codeine 300-30mg TAB PO PRN ×3 (05:42→23:23)
[2017-11-08 06:20] LABS: Basophils % (A) 0 %; Eosinophils # (A) 0.1 k/uL (0-0.7); Eosinophils % (A) 1 %; HCT 37.2 % (39.0-53.0); HGB 11.7 gm/dL (13.0-17.5); Hypochromasia Slight; Lymphocytes % (A) 8 %; MCH 28.1 pg (25.0-35.0); MCHC 31.4 g/dL (31.0-37.0); MCV 89.5 fL (80.0-100.0); Mean Platelet Volume 6.8; Monocytes # (A) 0.5 k/uL (0-1.0); Monocytes % (A) 5 %; Neutrophils # (A) 9.9 k/uL (1.3-7.7); Neutrophils % (A) 85 %; Platelet Count 199 k/uL (150-450); RBC 4.15 m/uL (4.30-5.90); RDW 13.8 % (11.5-15.5); WBC 11.7 k/uL (3.8-10.6)
[2017-11-08 06:29] LABS: Anion Gap 7 mmol/L; Blood Urea Nitrogen 26 mg/dL (9-20); Calcium 8.8 mg/dL (8.4-10.2); Carbon Dioxide 24 mmol/L (22-30); Chloride 105 mmol/L (98-107); Glucose 122 mg/dL (74-99); Potassium 4.4 mmol/L (3.5-5.1); Sodium 136 mmol/L (137-145)
[2017-11-08] MEDS: METOPROLOL TARTRATE 25 MG TAB PO SCH ×3 (07:45→20:52)
[2017-11-08] MEDS: WARFARIN 5 MG TAB PO SCH ×3 (07:46→18:47)
[2017-11-08] MEDS: VANCOMYCIN 2,250 MG in SODIUM CHLORIDE 0.9% 500 ML IVPB SCH ×2 (07:46→20:51)
[2017-11-08] MEDS: SODIUM CHLORIDE 0.9% 1,000 ML IV SCH (07:47)
--- NOTE | 2017-11-08 12:39 | XR ---
EXAMINATION TYPE: XR chest 2V DATE OF EXAM: 11/08/2017 COMPARISON: 11/06/2017 HISTORY: 67-year-old male shortness of breath. TECHNIQUE: Frontal and lateral views FINDINGS: Low lung volumes and cardiovascular markings. Right basilar opacity probably represents atelectasis a nd shows no significant compression from prior. Slight asymmetric elevation of the right hemidiaphrag m. Diffuse interstitial prominence suggestive of peribronchial cuffing. No pawan consolidation or ple ural effusion. Left anterior chest wall AICD generator with right atrial and right ventricular leads. IMPRESSION: Hypoventilatory changes with crowded vascular markings. Some right basilar density shows no progressi on and probably represents atelectasis. There may be a background of bronchitis or chronic asthma.
[2017-11-08] MEDS: FUROSEMIDE 10 MG/ML 4 ML VIAL IV SCH ×2 (13:40→20:44)
[2017-11-08] MEDS ORDERED: cefTRIAXone IN SWFI 2,000 MG/20 ML SYRINGE IVP SCH (17:45)
--- NOTE | 2017-11-08 18:06 | PN ---
PROGRESS NOTE DATE OF SERVICE: 11/08/2017 This 67-year-old gentleman who was admitted with significant cellulitis bilaterally, also had significant erythema of the right knee. The patient also has atrial fibrillation with rapid ventricular rate. Also patient had cardioversion currently in sinus rhythm. The patient also had features of sepsis also. Multiple consultants are following the patient closely. The patient is currently on vancomycin. Cultures are showing strep agalactiae. No fever. No cough. PAST MEDICAL HISTORY: Reviewed. REVIEW OF SYSTEMS: CARDIOVASCULAR: As mentioned earlier. Respiratory: As mentioned earlier. GI: No nausea or vomiting. no dysuria. Nervous systems: Dermatology: As mentioned earlier. CURRENT MEDICATIONS: 1. Tylenol #3 p.r.n. 2. Xanax 0.25 b.i.d. 3. Cordarone 400 mg b.i.d. 4. Lasix 40 mg b.i.d. 5. Lopressor. 6. Vancomycin IV. 7. Percocet. 8. Entresto 24/26 b.i.d. 9. Vancomycin 2.25 b.i.d. 10.Coumadin 5 mg. PHYSICAL EXAM: Patient is alert, oriented x3. Pulse 71, blood pressure 143/68, respirations 16, temperature 97.8, pulse ox 99 percent on room air. HEENT: Conjunctivae normal. Neck is no jugular venous distention. No carotid bruit. No lymph node enlargement. Cardiovascular systems: S1, S2 muffled. Respiration: Breath sounds diminished in the bases. No rhonchi. No crackles. ABDOMEN: Soft, nontender. No mass palpable. Legs: Bilateral leg swelling and erythema. Right more than left. Significant also present. NERVOUS SYSTEM: Higher functions as mentioned earlier. Moves all four extremities. No focal deficits. Lymphatics: No lymph nodes palpable in the neck, axillae or groin. Skin: No ulcer, rash or bleeding. LABS: WBC 7.7, hemoglobin 11.8, sodium 136. ASSESSMENT: 1. Atrial fibrillation with rapid ventricular rate, status post cardioversion. 2. Bilateral leg cellulitis, right more than the left with possible sepsis present on admission. 3. Paroxysmal atrial fibrillation. 4. Supratherapeutic INR on admission. 5. Chronic low back pain. 6. History of sick sinus syndrome. 7. History of morbid obesity, BMI of 43.6. 8. Hyponatremia. RECOMMENDATIONS AND DISCUSSION: In this 67-year-old gentleman who presented with multiple complex medical issues , we will monitor the patient closely, continue the current medications, management and symptomatic treatment. We will continue with IV Lasix and monitor fluid and electrolytes balance closely. Continue with vancomycin. Cultures are noted. Infectious disease evaluation. Monitor PT/INR closely. Guarded prognosis because of multiple complex medical issues. Further recommendations to follow. See orders for details. MMODL / IJN: [id number] / KORY
[2017-11-08] MEDS ORDERED: VANCOMYCIN TROUGH DUE 1 EACH MISC MISCELLANE ONE (20:00)
[2017-11-08] MEDS: AMIODARONE 200 MG TAB PO SCH (20:43)
[2017-11-08 20:51] LABS: Appearance,Urine Clear (Clear); Bilirubin,Urine Negative (Negative); Blood,Urine Negative (Negative); Color,Urine Yellow; Glucose,Urine (UA) Negative (Negative); Ketones,Urine Negative (Negative); Leukocyte Esterase,Urine Negative (Negative); Nitrite,Urine Negative (Negative); Protein,Urine Trace (Negative); Specific Gravity,Urine 1.017 (1.001-1.035); Urobilinogen,Urine <2.0 mg/dL (<2.0)
[2017-11-08] MEDS: ceFAZolin IN SWFI 2 GM/20 ML SYRINGE IVP SCH (23:23)
[2017-11-09 06:18] LABS: INR 2.2 (<1.2); Prothrombin Time 19.7 sec (9.0-12.0)
[2017-11-09 06:22] LABS: Basophils % (A) 0 %; Eosinophils # (A) 0.1 k/uL (0-0.7); Eosinophils % (A) 1 %; HCT 32.8 % (39.0-53.0); HGB 10.6 gm/dL (13.0-17.5); Hypochromasia Slight; Lymphocytes # (A) 1.1 k/uL (1.0-4.8); Lymphocytes % (A) 13 %; MCH 28.4 pg (25.0-35.0); MCHC 32.3 g/dL (31.0-37.0); MCV 87.9 fL (80.0-100.0); Mean Platelet Volume 6.6; Monocytes # (A) 0.4 k/uL (0-1.0); Monocytes % (A) 5 %; Neutrophils # (A) 6.7 k/uL (1.3-7.7); Neutrophils % (A) 79 %; Platelet Count 196 k/uL (150-450); RBC 3.74 m/uL (4.30-5.90); RDW 13.7 % (11.5-15.5); WBC 8.5 k/uL (3.8-10.6)
[2017-11-09 06:32] LABS: Anion Gap 5 mmol/L; Blood Urea Nitrogen 21 mg/dL (9-20); Calcium 8.5 mg/dL (8.4-10.2); Carbon Dioxide 30 mmol/L (22-30); Chloride 102 mmol/L (98-107); Glucose 110 mg/dL (74-99); Potassium 3.8 mmol/L (3.5-5.1); Sodium 137 mmol/L (137-145)
[2017-11-09] MEDS: FUROSEMIDE 10 MG/ML 4 ML VIAL IV SCH (08:27)
[2017-11-09] MEDS: VANCOMYCIN 2,250 MG in SODIUM CHLORIDE 0.9% 500 ML IVPB SCH (08:27)
[2017-11-09] MEDS: ceFAZolin IN SWFI 2 GM/20 ML SYRINGE IVP SCH ×3 (08:27→23:44)
[2017-11-09] MEDS: METOPROLOL TARTRATE 25 MG TAB PO SCH ×3 (08:27→20:28)
[2017-11-09] MEDS: SACUBITRIL/VALSARTAN 24 MG-26 MG TABLET PO SCH ×2 (08:27→20:28)
[2017-11-09] MEDS: AMIODARONE 200 MG TAB PO SCH ×2 (08:27→20:28)
[2017-11-09] MEDS: SPIRONOLACTONE 25 MG TAB PO SCH (11:45)
[2017-11-09] MEDS: oxyCODONE-APAP 5-325MG 1 EACH TAB PO PRN (13:59)
--- NOTE | 2017-11-09 15:29 | P.PN ---
Subjective Progress Note Date: 11/09/17 Principal diagnosis: Atrial flutter with rapid ventricular response, status post cardioversion, right lower extremity cellulitis, strep bacteremia This is a pleasant 67-year-old gentleman who follows with Dr. Curry in the office. He has a known history of hypertension, hyperlipidemia, nicotine dependence, prior pacemaker implantation, most recent Eve scan stress test according to the office note was performed in April of this year which revealed a small anterior scar no evidence of any reversible ischemia paroxysmal atrial fibrillation, according to the patient is been persistently in atrial fibrillation for the past several weeks and is scheduled to undergo cardioversion by Dr. Curry next week. Pacemaker was interrogated in the office and did confirm that the patient is in fact continuously in A. fib with a heart rate of 120 to 1:30. He presents to the hospital on this occasion with symptoms of shortness of breath with associated fever and chills. Chest x-ray on admission showed right basilar atelectasis and early infiltrate. X-ray of the tibial and fibula was performed which did not reveal any acute osseous abnormality. Diffuse soft tissue edema noted. EKG on presentation here showed typical atrial flutter with a rapid ventricular response. I pressure 130/80 with a heart rate in the 140s, 98% on 2 L of oxygen. Temperature on arrival 99.1, it did go up to 100.3, 97.5 this morning. Blood cell count 15.7 on admission, 11.5 this morning, hemoglobin 11.1, platelet count 195. INR 3.6. Sodium 135, potassium 4.1, BUN 27, creatinine 0.7. Magnesium level I.8. Troponin 0.012. At the time of my examination this morning, patient states she still feels mildly short of breath, he has significant bilateral peripheral edema with evidence of possible cellulitis on the right baer area as well as the upper right thigh area near the groin. On 11/09/2017 patient seen in follow-up on selective care unit. He states his breathing has improved, breathing easier today, room air pulse ox is 98%, vital signs are stable, patient is afebrile. Blood cultures were positive for group B strep agalactiae, patient is currently on IV, vancomycin was discontinued. Continues on IV diuretics in the form of Lasix 40 mg IV every 12 hours. He is in -1480 fluid balance over the last 24 hours. Yesterday's chest x-ray showed hypoventilatory changes with crowded vascular markings, and some right basilar density probably representing atelectasis. Right lower extremity remains swollen, but less red, and only slightly warm to touch. From cardiac standpoint patient remains stable, he remains in atrial paced rhythm, with a rate of 68 BPM. Objective - Vital Signs Vital signs: Vital Signs Temp 97.8 F 11/09/17 12:17 Pulse 79 11/09/17 12:17 Resp 18 11/09/17 12:17 BP 118/69 11/09/17 12:17 Pulse Ox 98 11/09/17 12:17 Intake & Output 11/08/17 11/09/17 11/09/17 18:59 06:59 18:59 Intake Total 720 480 Output Total 1000 1200 1000 Balance -280 -1200 -520 Weight 135.9 kg Intake: Oral 720 480 Output: Urine 1000 1200 1000 Other: Voiding Method Toilet Toilet Toilet Urinal Urinal Urinal # Voids 2 1 - Exam GENERAL EXAM: Alert, pleasant 67-year-old white male, comfortable in no apparent distress. HEAD: Normocephalic/atraumatic. EYES: Normal reaction of pupils, equal size. Conjunctiva pink, sclera white. NOSE: Clear with pink turbinates. THROAT: No erythema or exudates. NECK: No masses, no JVD, no thyroid enlargement, no adenopathy. CHEST: No chest wall deformity. Symmetrical expansion. LUNGS: Equal air entry with no crackles, wheeze, rhonchi or dullness. CVS: Regular rate and rhythm, normal S1 and S2, no gallops, no murmurs, no rubs ABDOMEN: Soft, nontender. No hepatosplenomegaly, normal bowel sounds, no guarding or rigidity. EXTREMITIES: No clubbing, right thigh and groin area is pink, swollen, there are scabs on bilateral tibial areas, right foot and ankle are reddened and touch MUSCULOSKELETAL: Muscle strength and tone normal. SPINE: No scoliosis or deformity SKIN: No rashes CENTRAL NERVOUS SYSTEM: Alert and oriented -3. No focal deficits, tone is normal in all 4 extremities. PSYCHIATRIC: Alert and oriented -3. Appropriate affect. Intact judgment and insight. - Labs CBC & Chem 7: 11/09/17 05:56 11/09/17 05:56 Labs: Abnormal Lab Results - Last 24 Hours (Table) 11/08/17 11/09/17 11/09/17 Range/Units 20:30 05:56 05:56 RBC 3.74 L (4.30-5.90) m/uL Hgb 10.6 L (13.0-17.5) gm/dL Hct 32.8 L (39.0-53.0) % PT (9.0-12.0) sec INR (<1.2) BUN 21 H (9-20) mg/dL Glucose 110 H (74-99) mg/dL Urine Protein Trace H (Negative) 11/09/17 Range/Units 05:56 RBC (4.30-5.90) m/uL Hgb (13.0-17.5) gm/dL Hct (39.0-53.0) % PT 19.7 H (9.0-12.0) sec INR 2.2 H (<1.2) BUN (9-20) mg/dL Glucose (74-99) mg/dL Urine Protein (Negative) Microbiology - Last 24 Hours (Table) 11/06/17 12:12 Blood Culture Gram Stain - Final Blood Blood Culture - Final Strep agalactiae - (group b) Assessment and Plan Plan: Assessment: #1 atrial flutter with rapid ventricular response #2 history of paroxysmal atrial fibrillation, according to recent device check in the office, patient has chronically been in A. fib with a heart rate in the 120s for the past several weeks. On Coumadin for anticoagulation, INR 3.6 #3 sepsis, likely secondary to cellulitis of the right lower extremity #4 hypertension #5 hyperlipidemia #6 history of pacemaker implantation, dual-chamber Biotronik for sick sinus syndrome in 2016 #7 obesity Plan: Continue current medical treatment, we will switch the IV Lasix to oral 40 mg twice daily. We will add Aldactone 25 mg daily. Continue early weights and accurate I&O's. Patient could potentially be cleared for discharge from cardiac standpoint, provided he continues to improve. I performed a history & physical examination of the patient and discussed their management with my nurse practitioner, Carmen Yancey. I reviewed the nurse practitioner's note and agree with the documented findings and plan of care. Lung sounds are clear. The findings and the impression was discussed with the patient. I attest to the documentation by the nurse practitioner. Time with Patient: Less than 30
[2017-11-09] MEDS: SODIUM CHLORIDE 0.9% 1,000 ML IV SCH (15:51)
[2017-11-09] MEDS: FUROSEMIDE 40 MG TAB PO SCH (15:59)
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
[2017-11-09] MEDS ORDERED: WARFARIN 5 MG TAB PO SCH (18:00)
--- NOTE | 2017-11-09 18:46 | PN ---
PROGRESS NOTE DATE OF SERVICE: 11/09/2017. INTERVAL HISTORY: This 67-year-old gentleman who was admitted with atrial fibrillation also had bilateral leg cellulitis, right more the left. Patient closely monitored at this time. The patient is on broad-spectrum IV antibiotics. No chest pain. No palpitations. No fever. PHYSICAL EXAM: Alert and oriented times three. Pulse 79, blood pressure 128/62, respirations 16, temperature 97.8, pulse ox 98% room air. HEENT: Conjunctivae normal. Oral mucosa moist. Neck is no jugular venous distention. No carotid bruit. No lymph node enlargement. Cardiovascular: S1, S2 muffled. Respirations: Breath sounds diminished in the bases. No rhonchi. No crackles. ABDOMEN: Soft, obese. LEGS: Bilateral leg swelling, right more than the left. Right leg cellulitis also present. Nervous system: No focal deficits. LABS: WBC 8.2, hemoglobin was 10.6. ASSESSMENT: 1. Atrial fibrillation with rapid ventricular rate, status post cardioversion. 2. Bilateral leg cellulitis, right more than the left with possible sepsis present on admission with srtep agalactiae bacteremia. 3. Paroxysmal atrial fibrillation. 4. Supratherapeutic INR on admission. 5. Chronic low back pain. 6. History of sick sinus syndrome. 7. History of morbid obesity, BMI of 43.6. 8. Hyponatremia. RECOMMENDATIONS AND DISCUSSION: Recommend to continue current medications, continue to monitor. Symptomatic treatment. Continue with diuretics. Monitor fluid and electrolytes balance closely. Continue the antibiotics. Cefazolin being added to the current regimen. Guarded prognosis because of multiple complex medical issues. Further recommendations to follow. MMODL / IJN: [id number] / MTDD
[2017-11-09] MEDS: Acetaminophen-Codeine 300-30mg TAB PO PRN (20:28)
--- NOTE | 2017-11-09 22:52 | PN ---
PROGRESS NOTE DATE OF SERVICE: 11/09/2017. REASON FOR FOLLOWUP: 1. Right lower extremity cellulitis. 2. Streptococcus agalactiae bacteremia. INTERVAL HISTORY: The patient is afebrile. He seems to be breathing more comfortably. He denies significant chest pain. Right leg swelling and redness have slightly decreased intensity. No abdominal pain. No diarrhea. EXAMINATION: Blood pressure is 136/72 with a pulse of 80, temperature of 98. He is 98% on room air. General description is an elderly male lying in bed in no distress. Respiratory system unlabored breathing, clear to auscultation anteriorly. Heart S1, S2. ABDOMEN: Soft, no tenderness. Right leg swelling persists and slightly decreased and some clear drainage. LABS: Hemoglobin is 10.1, white count 8.5 with a BUN of 21, creatinine 0.72. DIAGNOSTIC IMPRESSION AND PLAN: Patient with right lower extremity cellulitis with Streptococcus agalactiae bacteremia. Antibiotic has been adjusted to cefazolin 2 g q.8h. Mc wrap to the lower extremity and vancomycin has been discontinued. We will continue to monitor the patient closely. Finish therapy with oral antibiotics. Continue supportive care. MMODL / IJN: [id number] /
[2017-11-10 06:33] LABS: Basophils % (A) 0 %; Eosinophils # (A) 0.1 k/uL (0-0.7); Eosinophils % (A) 1 %; HCT 36.3 % (39.0-53.0); Hypochromasia Slight; Lymphocytes # (A) 1.6 k/uL (1.0-4.8); Lymphocytes % (A) 21 %; MCH 26.6 pg (25.0-35.0); MCHC 30.4 g/dL (31.0-37.0); MCV 87.6 fL (80.0-100.0); Mean Platelet Volume 6.8; Monocytes # (A) 0.5 k/uL (0-1.0); Monocytes % (A) 6 %; Neutrophils # (A) 5.2 k/uL (1.3-7.7); Neutrophils % (A) 69 %; Platelet Count 226 k/uL (150-450); RBC 4.15 m/uL (4.30-5.90); RDW 13.7 % (11.5-15.5); WBC 7.6 k/uL (3.8-10.6)
[2017-11-10 06:34] LABS: INR 2.1 (<1.2); Prothrombin Time 18.9 sec (9.0-12.0)
[2017-11-10 06:48] LABS: Anion Gap 6 mmol/L; Blood Urea Nitrogen 18 mg/dL (9-20); Calcium 8.8 mg/dL (8.4-10.2); Carbon Dioxide 30 mmol/L (22-30); Chloride 102 mmol/L (98-107); Glucose 96 mg/dL (74-99); Potassium 4.2 mmol/L (3.5-5.1); Sodium 138 mmol/L (137-145)
[2017-11-10] MEDS: AMIODARONE 200 MG TAB PO SCH ×2 (09:06→21:51)
[2017-11-10] MEDS: METOPROLOL TARTRATE 25 MG TAB PO SCH ×3 (09:07→21:51)
[2017-11-10] MEDS: SACUBITRIL/VALSARTAN 24 MG-26 MG TABLET PO SCH ×2 (09:07→21:51)
[2017-11-10] MEDS: FUROSEMIDE 40 MG TAB PO SCH ×2 (09:07→15:47)
[2017-11-10] MEDS: SPIRONOLACTONE 25 MG TAB PO SCH (09:08)
[2017-11-10] MEDS: oxyCODONE-APAP 5-325MG 1 EACH TAB PO PRN ×2 (09:19→18:06)
[2017-11-10] MEDS: ceFAZolin IN SWFI 2 GM/20 ML SYRINGE IVP SCH ×3 (09:54→23:58)
--- NOTE | 2017-11-10 13:51 | P.PN ---
Subjective Progress Note Date: 11/10/17 Principal diagnosis: Atrial flutter with rapid ventricular response, status post cardioversion, right lower extremity cellulitis, strep bacteremia This is a pleasant 67-year-old gentleman who follows with Dr. Curry in the office. He has a known history of hypertension, hyperlipidemia, nicotine dependence, prior pacemaker implantation, most recent Eve scan stress test according to the office note was performed in April of this year which revealed a small anterior scar no evidence of any reversible ischemia paroxysmal atrial fibrillation, according to the patient is been persistently in atrial fibrillation for the past several weeks and is scheduled to undergo cardioversion by Dr. Curry next week. Pacemaker was interrogated in the office and did confirm that the patient is in fact continuously in A. fib with a heart rate of 120 to 1:30. He presents to the hospital on this occasion with symptoms of shortness of breath with associated fever and chills. Chest x-ray on admission showed right basilar atelectasis and early infiltrate. X-ray of the tibial and fibula was performed which did not reveal any acute osseous abnormality. Diffuse soft tissue edema noted. EKG on presentation here showed typical atrial flutter with a rapid ventricular response. I pressure 130/80 with a heart rate in the 140s, 98% on 2 L of oxygen. Temperature on arrival 99.1, it did go up to 100.3, 97.5 this morning. Blood cell count 15.7 on admission, 11.5 this morning, hemoglobin 11.1, platelet count 195. INR 3.6. Sodium 135, potassium 4.1, BUN 27, creatinine 0.7. Magnesium level I.8. Troponin 0.012. At the time of my examination this morning, patient states she still feels mildly short of breath, he has significant bilateral peripheral edema with evidence of possible cellulitis on the right baer area as well as the upper right thigh area near the groin. On 11/09/2017 patient seen in follow-up on selective care unit. He states his breathing has improved, breathing easier today, room air pulse ox is 98%, vital signs are stable, patient is afebrile. Blood cultures were positive for group B strep agalactiae, patient is currently on IV, vancomycin was discontinued. Continues on IV diuretics in the form of Lasix 40 mg IV every 12 hours. He is in -1480 fluid balance over the last 24 hours. Yesterday's chest x-ray showed hypoventilatory changes with crowded vascular markings, and some right basilar density probably representing atelectasis. Right lower extremity remains swollen, but less red, and only slightly warm to touch. From cardiac standpoint patient remains stable, he remains in atrial paced rhythm, with a rate of 68 BPM. On 11/10/2017 patient seen in follow-up on selective care unit. He is resting comfortably in bed, in no acute distress. Room air pulse ox is 96%, lung sounds are clear to auscultation, vital signs are stable, when necessary is of bilateral lower extremity edema is improving, patient is in a 80 fluid balance, -5 L over the last 24 hours, the weight is down 2.1 kg. Patient is a true paced on the monitor, no recurrence of a-flutter. Objective - Vital Signs Vital signs: Vital Signs Temp 97.1 F L 11/10/17 11:28 Pulse 65 11/10/17 11:28 Resp 16 11/10/17 11:28 BP 146/99 11/10/17 11:28 Pulse Ox 96 11/10/17 11:28 Intake & Output 11/09/17 11/10/17 11/10/17 18:59 06:59 18:59 Intake Total 720 600 Output Total 1000 4725 400 Balance -280 -4725 200 Weight 133.8 kg Intake: Oral 720 600 Output: Urine 1000 4725 400 Other: Voiding Method Toilet Toilet Urinal Urinal Urinal # Voids 2 - Exam GENERAL EXAM: Alert, pleasant 67-year-old white male, comfortable in no apparent distress. HEAD: Normocephalic/atraumatic. EYES: Normal reaction of pupils, equal size. Conjunctiva pink, sclera white. NOSE: Clear with pink turbinates. THROAT: No erythema or exudates. NECK: No masses, no JVD, no thyroid enlargement, no adenopathy. CHEST: No chest wall deformity. Symmetrical expansion. LUNGS: Equal air entry with no crackles, wheeze, rhonchi or dullness. CVS: Regular rate and rhythm, normal S1 and S2, no gallops, no murmurs, no rubs ABDOMEN: Soft, nontender. No hepatosplenomegaly, normal bowel sounds, no guarding or rigidity. EXTREMITIES: No clubbing, right thigh and groin area is pink, swollen, there are scabs on bilateral tibial areas, right foot and ankle are reddened and touch MUSCULOSKELETAL: Muscle strength and tone normal. SPINE: No scoliosis or deformity SKIN: No rashes CENTRAL NERVOUS SYSTEM: Alert and oriented -3. No focal deficits, tone is normal in all 4 extremities. PSYCHIATRIC: Alert and oriented -3. Appropriate affect. Intact judgment and insight. - Labs CBC & Chem 7: 11/10/17 05:45 11/10/17 05:45 Labs: Abnormal Lab Results - Last 24 Hours (Table) 11/10/17 11/10/17 11/10/17 Range/Units 05:45 05:45 05:45 RBC 4.15 L (4.30-5.90) m/uL Hgb 11.0 L (13.0-17.5) gm/dL Hct 36.3 L (39.0-53.0) % MCHC 30.4 L (31.0-37.0) g/dL PT 18.9 H (9.0-12.0) sec INR 2.1 H (<1.2) Creatinine 0.65 L (0.66-1.25) mg/dL Microbiology - Last 24 Hours (Table) 11/08/17 20:15 Blood Culture - Preliminary Blood No Growth after 24 hours Assessment and Plan Plan: Assessment: #1 atrial flutter with rapid ventricular response, status post successful cardioversion #2 history of paroxysmal atrial fibrillation, according to recent device check in the office, patient has chronically been in A. fib with a heart rate in the 120s for the past several weeks. On Coumadin for anticoagulation, INR 2.1 #3 sepsis, likely secondary to cellulitis of the right lower extremity #4 hypertension #5 hyperlipidemia #6 history of pacemaker implantation, dual-chamber Biotronik for sick sinus syndrome in 2016 #7 obesity Plan: Continue oral Lasix, and Aldactone, continue to diurese. Patient remains stable , no recurrence of atrial flutter. Patient can be cleared for discharge from cardiac perspective once cleared by primary. I performed a history & physical examination of the patient and discussed their management with my nurse practitioner, Carmen Yancey. I reviewed the nurse practitioner's note and agree with the documented findings and plan of care. Lung sounds are clear. The findings and the impression was discussed with the patient. I attest to the documentation by the nurse practitioner. Time with Patient: Less than 30
[2017-11-10] MEDS: WARFARIN 5 MG TAB PO SCH ×2 (15:49→18:07)
--- NOTE | 2017-11-10 19:14 | PN ---
PROGRESS NOTE DATE OF SERVICE: 11/10/2017. INTERVAL HISTORY: This 67 -year-old gentleman who was admitted with atrial fibrillation with rapid ventricular rate had cardioversion. Patient also had significant cellulitis of the both legs, right more the left. No chest pain. No palpitations. Patient also had strep agalactiae sepsis also. Multiple consultants, including Cardiology and Infectious disease following the patient. No chest pain. No palpitations. No fever. PHYSICAL EXAM: Alert and oriented times three. Pulse 65, blood pressure 146/99, respiration rate 16, temperature 97.1, pulse ox 98% on room air. HEENT: Conjunctivae normal. Oral mucosa is moist. Neck is no jugular venous distention. No carotid bruit. No lymph node enlargement. Cardiovascular systems: S1, S2. Respiration: Breath sounds diminished in the bases. No rhonchi and no crackles. ABDOMEN: Soft, nontender. No mass palpable. Legs: No edema. No swelling. NERVOUS SYSTEM: Higher functions as mentioned earlier. Moves all four extremities. No focal deficits. Lymphatics: No lymph nodes palpable in the neck, axillae or groin. Skin: No ulcer, rash or bleeding. LABS: WBC 7.2, hemoglobin 11, INR 2.1. ASSESSMENT: 1. Atrial fibrillation with rapid ventricular rate, status post cardioversion. 2. Bilateral leg cellulitis, right more than the left with possible sepsis present on admission with Strep agalactiae bacteremia and sepsis. 3. Paroxysmal atrial fibrillation. 4. Supratherapeutic INR on admission. 5. Chronic low back pain. 6. History of sick sinus syndrome. 7. Morbid obesity, BMI of 43.6. 8. Hyponatremia. RECOMMENDATIONS AND DISCUSSION: Continue current medications, management and symptomatic treatment. Continue with diuresis. Otherwise, closely follow. Continue with IV antibiotics. Continue the rest of medication. Monitor labs. Discussed with the patient and family. Understands and agrees. Further recommendations to follow. MMODL / IJN: [id number] /
[2017-11-10] MEDS: SODIUM CHLORIDE 0.9% 1,000 ML IV SCH (19:35)
[2017-11-10] MEDS: Acetaminophen-Codeine 300-30mg TAB PO PRN (21:54)
[2017-11-11] MEDS: AMIODARONE 200 MG TAB PO SCH (08:05)
[2017-11-11] MEDS: FUROSEMIDE 40 MG TAB PO SCH ×2 (08:05→16:07)
[2017-11-11] MEDS: WARFARIN 5 MG TAB PO SCH (08:06)
[2017-11-11] MEDS: SPIRONOLACTONE 25 MG TAB PO SCH (08:07)
--- NOTE | 2017-11-11 08:08 | PN ---
PROGRESS NOTE DATE OF SERVICE: 11/10/2017. REASON FOR FOLLOWUP: Right lower extremity cellulitis. INTERVAL HISTORY: The patient is currently afebrile. He is breathing comfortably. Denies having any chest pain, shortness of breath, cough, abdominal pain, pain, swelling and redness of the right has decreased intensity. EXAMINATION: Blood pressure 127/67 with a pulse of 57, temperature 97. He is 92% on room air. General description is an elderly male lying in bed in no distress. Respiratory system: Unlabored breathing. Clear to auscultation anteriorly. Heart S1, S2. Regular rate and rhythm. Abdomen soft, no tenderness. The right leg swelling persisted and redness slightly decreased. LABS: Hemoglobin is 11, white count 7.6, BUN of 18, creatinine 0.65. DIAGNOSTIC IMPRESSION AND PLAN: Patient with right foot cellulitis with Streptococcus agalactiae bacteremia. The patient g q.8 hours that will be continued to finish therapy with oral antibiotic on discharge. Continue Mc wrap to the leg to keep the swelling down. MMODL / IJN: [id number] /
[2017-11-11] MEDS: Acetaminophen-Codeine 300-30mg TAB PO PRN (08:12)
[2017-11-11] MEDS: METOPROLOL TARTRATE 25 MG TAB PO SCH ×2 (08:14→16:07)
[2017-11-11] MEDS: ceFAZolin IN SWFI 2 GM/20 ML SYRINGE IVP SCH ×2 (09:02→16:06)
[2017-11-11 09:09] LABS: Basophils # (A) 0.1 k/uL (0-0.2); Basophils % (A) 1 %; Eosinophils # (A) 0.2 k/uL (0-0.7); Eosinophils % (A) 2 %; HCT 41.9 % (39.0-53.0); HGB 13.1 gm/dL (13.0-17.5); Hypochromasia Slight; Lymphocytes # (A) 2.1 k/uL (1.0-4.8); Lymphocytes % (A) 23 %; MCH 27.5 pg (25.0-35.0); MCHC 31.2 g/dL (31.0-37.0); Mean Platelet Volume 6.3; Monocytes # (A) 0.5 k/uL (0-1.0); Monocytes % (A) 6 %; Neutrophils # (A) 6.2 k/uL (1.3-7.7); Neutrophils % (A) 67 %; Platelet Count 302 k/uL (150-450); RBC 4.76 m/uL (4.30-5.90); RDW 13.6 % (11.5-15.5); WBC 9.3 k/uL (3.8-10.6)
[2017-11-11 09:13] LABS: Anion Gap 8 mmol/L; Blood Urea Nitrogen 18 mg/dL (9-20); Calcium 9.3 mg/dL (8.4-10.2); Carbon Dioxide 33 mmol/L (22-30); Chloride 98 mmol/L (98-107); Glucose 95 mg/dL (74-99); Potassium 4.4 mmol/L (3.5-5.1); Sodium 139 mmol/L (137-145)
[2017-11-11 09:30] LABS: INR 2.1 (<1.2)
[2017-11-11] MEDS: SACUBITRIL/VALSARTAN 24 MG-26 MG TABLET PO SCH (11:33)
[2017-11-11] MEDS: SODIUM CHLORIDE 0.9% 1,000 ML IV SCH (12:42)
[2017-11-11 14:19] VITALS: BP 119/61; PULSE 70; RESP 20; TEMP 98
--- NOTE | 2017-11-11 16:06 | PN ---
PROGRESS NOTE DATE OF SERVICE: 11/11/2017. REASON FOR FOLLOWUP: Right lower extremity cellulitis and streptococcus agalactiae bacteremia. INTERVAL HISTORY: The patient is currently afebrile. He is breathing comfortably. The patient denies having any chest pain, shortness of breath, cough or abdominal pain. Right leg swelling and redness have improved. EXAMINATION: Blood pressure is 119/61 with a pulse of 73, temperature 98. He is 94% on room air. The patient is an elderly male up in the bed in no distress. RESPIRATORY SYSTEM: Unlabored breathing. Clear to auscultation anteriorly. HEART: S1, S2. Regular rate and rhythm. Right leg swelling and redness have improved. LABS: White count 9.3 with a BUN of 18, creatinine 0.80. DIAGNOSTIC IMPRESSION AND PLAN: Patient with acute right lower extremity cellulitis with Streptococcus agalactiae bacteremia. We will finish therapy with oral Keflex 500 mg 4 times a day for 10 days with close outpatient followup. His INR to be monitored closely while he is on Keflex. Continue supportive care. MMDAVEL / CARLOSN: [id number] /
[2017-11-11] MEDS ORDERED: LOSARTAN 25 MG TAB PO SCH (21:00)
--- NOTE | 2017-11-11 21:43 | P.DS ---
Providers Date of admission: 11/06/17 14:14 Expected date of discharge: 11/11/17 Attending physician: Bailey Dhaliwal Consults: 11/06/17 12:56 Consult Physician Routine Consulting Provider: Nicko Rush Consult Reason/Comments: tachyarrhytmia Do you want consulting provider notified?: Yes 11/08/17 16:55 Consult Physician Routine Consulting Provider: Belkis Castelan Consult Reason/Comments: sepsis Do you want consulting provider notified?: Yes Primary care physician: [facility] Hospital Course: Final Diagnoses: Atrial fibrillation with RVR. Status post cardioversion. Atrial flutter with 2:1 conduction Sepsis secondary to right lower activity cellulitis with Streptococcus agalactiae bacteremia ,recent trauma Paroxysmal atrial fibrillation on anticoagulation with warfarin Supratherapeutic INR on admission Chronic lower back pain, spinal stenosis and compressive disc due to accident Sick Sinus syndrome. Status post pacemaker placement Morbid obesity BMI 43.0 Hospital course:Patient is a 67-year-old male with a known history of paroxysmal atrial fibrillation since 2015 on anticoagulation with Coumadin, sick sinus syndrome status post pacemaker placement in 2015, lumbar disc degenerative disease and multiple other medical problems came to the hospital with complaints of shortness of breath. Patient has been having issues with atrial fibrillation for the past 6-7 weeks and is scheduled for cardioversion on 11/08/2017. Last night patient became greenish and was having worsening shortness of breath. Shortness of breath gets worse with leaning over. Patient has been hyperventilating and shaky and felt very cold. Patient came to the hospital by his . Patient also reports pain and warmth to his right lower extremity. He states that he had a limited traumatic accident 3 weeks ago while repairing under the car.. Denies any constitutional symptoms. Denies any chest pain. No nausea vomiting or abdominal pain. EKG showed atrial flutter with 2-1 conduction Chest x-ray right basilar atelectasis or early infiltrate X-ray of right lower extremity no acute osseous abnormality. Diffuse soft tissue edema. WBC 15.7, INR 3.6 and lactic acid 2.2 Evaluated by cardiology, underwent cardioversion with successful conversion to sinus rhythm. Heart rate is controlled. 2-D echocardiogram Showed ejection fraction 20 to 25%. Evaluated by infectious disease, maintained on antibiotics. Significant clinical improvement. Patient has been cleared by consults for discharge. Patient is being discharged home in a stable condition with guarded prognosis. EXAMINATION: GENERAL: no acute distress, awake alert and oriented X 3.. CHEST EXAMINATION: Lung lebron clear to auscultation and percussion. CARDIAC: Normal S1, S2 with no gallops. No murmurs ABDOMEN: Soft. Bowel sounds normal. No organomegaly. Extremities: Improving Right lower extremity redness and swelling with scar fine at the time Left lower extremity having wound lacerations healing well. Neurologically No focal deficits noted The impression and plan of care has been dictated as directed. : I performed a history and examination of this patient, discussed the same with the dictator. I agree with the dictator's note ,documented as a scribe. Any additional findings or plans will be noted. Time taken: 35 minutes Time taken: 35 minutes Patient Condition at Discharge: Stable Plan - Discharge Summary Discharge Rx Participant: No New Discharge Prescriptions: New Furosemide [Lasix] 40 mg PO BID@0900,1600 #60 tab Metoprolol Tartrate [Lopressor] 25 mg PO TID #90 tab Spironolactone [Aldactone] 25 mg PO DAILY #30 tab Warfarin [Coumadin] 5 mg PO SuWe@1800 #1 tab Warfarin [Coumadin] 10 mg PO MoTuThFrSa@1800 #1 tab Cephalexin [Keflex] 500 mg PO Q6HR #40 cap Losartan [Cozaar] 25 mg PO BID tab Continue oxyCODONE-APAP 5-325MG [Percocet 5-325 mg] 1 tab PO TID PRN PRN Reason: Pain Naproxen 500 mg PO BID PRN PRN Reason: Pain Potassium Chloride ER [K-Dur 10] 10 meq PO DAILY Discontinued Warfarin [Coumadin] 5 mg PO SUWE Metoprolol Tartrate [Lopressor] 25 mg PO BID Losartan [Cozaar] 25 mg PO BID Furosemide [Lasix] 20 mg PO BID Warfarin [Coumadin] 5 mg PO DIRECTED Discharge Medication List Naproxen 500 mg PO BID PRN 10/17/17 [History] oxyCODONE-APAP 5-325MG [Percocet 5-325 mg] 1 tab PO TID PRN 10/17/17 [History] Potassium Chloride ER [K-Dur 10] 10 meq PO DAILY 11/06/17 [History] Cephalexin [Keflex] 500 mg PO Q6HR #40 cap 11/11/17 [Rx] Furosemide [Lasix] 40 mg PO BID@0900,1600 #60 tab 11/11/17 [Rx] Losartan [Cozaar] 25 mg PO BID tab 11/11/17 [Rx] Metoprolol Tartrate [Lopressor] 25 mg PO TID #90 tab 11/11/17 [Rx] Spironolactone [Aldactone] 25 mg PO DAILY #30 tab 11/11/17 [Rx] Warfarin [Coumadin] 5 mg PO SuWe@1800 #1 tab 11/11/17 [Rx] Warfarin [Coumadin] 10 mg PO MoTuThFrSa@1800 #1 tab 11/11/17 [Rx] Follow up Appointment(s)/Referral(s): Nicko Rush MD [STAFF PHYSICIAN] - 1 Week (Cardiology will call patient with an appointment date and time. ) Belkis Castelan MD [STAFF PHYSICIAN] - 11/20/17 10:15 am [facility],Clinic [Primary Care Provider] - 11/13/17 2:00 pm Ambulatory/Diagnostic Orders: Prothrombin Time INR [LAB.AMB] Time Frame: 3 Days, Location: None Selected Patient Instructions/Handouts: Cephalexin (By mouth), Metoprolol (By mouth), Spironolactone (By mouth), Furosemide (By mouth), Warfarin (By mouth), Sacubitril/Valsartan (By mouth), Atrial Flutter (DC), Cellulitis (DC) Discharge Disposition: HOME SELF-CARE
[2017-11-12] MEDS ORDERED: WARFARIN 10 MG TAB PO SCH (18:00)
== END 2017-11-11 17:00 | disposition home or self-care (01) | DRG 308 ==
LOC: EC 11:49 → 6SEL 14:14 → 5MS5E 11-10 18:31
PROVIDERS: ADMIT Hospitalist; ATTEND Hospitalist
PROC: 5A2204Z Restoration of Cardiac Rhythm, Single (ICD-10-PCS; principal; 2017-11-07 11:10)
DX: I48.0 Paroxysmal atrial fibrillation (principal); A40.1 Sepsis due to streptococcus, group B; L03.115 Cellulitis of right lower limb; Z68.41 Body mass index [BMI] 40.0-44.9, adult; E87.1 Hypo-osmolality and hyponatremia; J98.11 Atelectasis; L03.116 Cellulitis of left lower limb; I48.3 Typical atrial flutter; E66.01 Morbid (severe) obesity due to excess calories; I11.9 Hypertensive heart disease without heart failure; R73.9 Hyperglycemia, unspecified; M25.569 Pain in unspecified knee; R79.1 Abnormal coagulation profile; T45.515A Adverse effect of anticoagulants, initial encounter; E78.5 Hyperlipidemia, unspecified; M51.36 Other intervertebral disc degeneration, lumbar region; M48.00 Spinal stenosis, site unspecified; G89.29 Other chronic pain; Z79.01 Long term (current) use of anticoagulants; Z79.899 Other long term (current) drug therapy; Z95.810 Presence of automatic (implantable) cardiac defibrillator; Z87.891 Personal history of nicotine dependence; Z82.0 Family history of epilepsy and other diseases of the nervous system
CPT/HCPCS: 36415; 71046; 80048; 80053; 80202; 81003; 82550; 82553; 83605; 83735; 83880; 84443; 84484; 85025; 85610; 85730; 87040; 87077; 87186; 92960; 93005; 93306; 94760; 96365; 96366; 96367; 99285

== ENCOUNTER → 2017-12-24 | Day surgery (SDC) | payer MEDICARE, OTHER ==
[2017-12-17 12:13] VITALS: BMI 40.1
[~2017-12-24] MED LIST: ALPRAZolam 0.25 MG TAB PO PRN; ALPRAZolam 0.5 MG TAB PO PRN; ASPIRIN 325 MG TAB PO ONE; ATORVASTATIN 80 MG TAB PO ONE; HEPARIN SODIUM 1,000 UN/ML (10ML VL) IV ONE; HEPARIN SODIUM 1,000 UN/ML (10ML VL) ONE; IOPAMIDOL-370 125ML BTL INJ ONE; LIDOCAINE 1% INJ 10MG/ML (20 ML MDV) ONE; LIDOCAINE 1% INJ 10MG/ML (20 ML MDV) SQ ONE; MIDAZOLAM 2 MG/2 ML VIAL IV ONE; MIDAZOLAM 2 MG/2 ML VIAL ONE; MORPHINE SULFATE 4 MG/ML SYRINGE IV ONE; MORPHINE SULFATE 4 MG/ML SYRINGE ONE; NITROGLYCERIN SL TABS 0.4 MG TAB SUBLINGUAL PRN; PROPOFOL 10 MG/ML 20 ML VIAL IV ONE; RX INFO: IV CONTRAST WAS GIVEN 1 EACH MISC MISCELLANE PRN; SODIUM CHLORIDE 0.9% 1,000 ML IV ONE; SODIUM CHLORIDE 0.9% 1,000 ML IV SCH; SODIUM CHLORIDE 0.9% 1,000 ML in EMPTY BAG 1 BAG IV ONE; VERAPAMIL 2.5 MG/ML 2 ML AMP ONE; fentaNYL (PF) 50 MCG/ML 2 ML AMP IV ONE; fentaNYL (PF) 50 MCG/ML 2 ML AMP ONE
[2017-12-24 08:18] LABS: Basophils % (A) 1 %; Eosinophils # (A) 0.2 k/uL (0-0.7); Eosinophils % (A) 2 %; HCT 40.9 % (39.0-53.0); HGB 13.1 gm/dL (13.0-17.5); Lymphocytes # (A) 1.8 k/uL (1.0-4.8); Lymphocytes % (A) 20 %; MCHC 31.9 g/dL (31.0-37.0); MCV 87.6 fL (80.0-100.0); Mean Platelet Volume 6.4; Monocytes # (A) 0.4 k/uL (0-1.0); Monocytes % (A) 5 %; Neutrophils # (A) 6.4 k/uL (1.3-7.7); Neutrophils % (A) 71 %; Platelet Count 265 k/uL (150-450); RBC 4.67 m/uL (4.30-5.90); RDW 14.5 % (11.5-15.5)
[2017-12-24 08:21] VITALS: TEMP 98.1
[2017-12-24 08:22] LABS: INR 1.2 (<1.2); Prothrombin Time 11.8 sec (9.0-12.0)
[2017-12-24 08:36] LABS: Poikilocytosis (M) Present
[2017-12-24 08:44] LABS: Glucose,Whole Blood 107 mg/dL (75-99)
[2017-12-24 09:20] LABS: Anion Gap 11 mmol/L; Blood Urea Nitrogen 29 mg/dL (9-20); Calcium 9.4 mg/dL (8.4-10.2); Carbon Dioxide 24 mmol/L (22-30); Chloride 106 mmol/L (98-107); Glucose 108 mg/dL (74-99); Potassium 4.3 mmol/L (3.5-5.1); Sodium 141 mmol/L (137-145)
[2017-12-24] MEDS: VERAPAMIL SYRINGE (5 MG/10 ML) INTRAARTER ONE ×2 (10:06→10:21)
--- NOTE | 2017-12-24 10:38 | CE ---
CARDIAC ELECTROPHYSIOLOGY REPORT DATE OF SERVICE: 12/24/2017 PERFORMING PHYSICIAN: Nicko Rush MD, Bindery Machine Operator. PROCEDURE PERFORMED: Cardioversion. INDICATION: This is a pleasant 67-year-old gentleman who was diagnosed with atrial fibrillation/atrial flutter and scheduled today to undergo a cardioversion. He underwent transesophageal echocardiogram and that revealed no evidence of intracardiac thrombus. PROCEDURE DESCRIPTION: After a transesophageal echocardiogram was performed, we decided to pursue with a cardioversion. The patient converted from atrial flutter into normal sinus mechanism using 100 joules on first attempt. CONCLUSION: Successful cardioversion of atrial flutter into normal sinus mechanism using 100 joules on first attempt. MMODL / IJN: [id number] /
--- NOTE | 2017-12-24 10:56 | ECHOT ---
TRANSESOPHAGEAL ECHOCARDIOGRAM DATE OF SERVICE: December 24, 2017 PERFORMING PHYSICIAN: Nicko Rush MD, molded grid and parts inspector. PROCEDURE PERFORMED: Transesophageal echocardiogram. INDICATION: This is a pleasant 67-year-old gentleman with a history of paroxysmal atrial fibrillation who was scheduled today to undergo a cardioversion. The THIEN is to rule out any intracardiac thrombus. COMPLICATION: None. LEVEL OF SEDATION: Deep sedation was performed using propofol with PATTERN DESIGNER and anesthesiologist in the room. PROCEDURE DESCRIPTION: After obtaining an informed consent, explaining the procedure, benefits, risks, complications and alternatives, the patient was brought to the transesophageal echocardiogram suite. A pulse oximetry and heart rate monitors were attached to the patient prior to the procedure. The patient's throat was sprayed using lidocaine locally. Following that, the patient was turned into left lateral position. A bite guard was placed and the patient was then sedated with the above doses of Versed and fentanyl in divided doses. Following that, the transesophageal echocardiogram probe was advanced through the bite guard into the mid esophagus where 2-D echocardiogram images as well as color Doppler images of various cardiac structures were obtained. We evaluated the interatrial septum using 2-D echocardiogram, color Doppler, and contrast study. The procedure was completed. There were no complications. FINDINGS: The left ventricular systolic function is severely impaired with an ejection fraction of 20% with global hypokinesia. Right ventricle appeared to be of some normal size and function. The left atrium appeared to be mildly dilated. The left atrial appendage appeared to be free from any thrombus. The interatrial septum appeared to be intact without any evidence of shunt. The aortic valve appeared to be trileaflet valve without stenosis or regurgitation. The mitral valve seems to be mildly thickened with mild MR. There was moderate tricuspid regurgitation and mild pulmonic insufficiency seen. CONCLUSION: 1. Normal left atrial appendage without any evidence of thrombus. 2. Intact interatrial septum without any evidence of shunt. 3. Severely impaired left ventricular function with ejection fraction of 20% and global hypokinesia. 4. Trileaflet aortic valve without stenosis or regurgitation. 5. Thickened mitral valve leaflets with mild mitral regurgitation. 6. Moderate tricuspid regurgitation. 7. No evidence of pericardial effusion. MMODL / IJN: [id number] /
--- NOTE | 2017-12-24 11:02 | CC ---
CARDIAC CATHETERIZATION REPORT DATE OF SERVICE: December 24, 2017 PERFORMING PHYSICIAN: Nicko Rush MD. PROCEDURE PERFORMED: Heart catheterization. INDICATION: This is a pleasant 67-year-old gentleman who was diagnosed recently with cardiomyopathy. He was brought today to undergo a heart catheterization to rule out any severe underlying CAD. COMPLICATION: None. LEVEL OF SEDATION: Moderate with sedation length of 60 minutes. APPROACH: Right radial artery. PROCEDURE DESCRIPTION: After obtaining an informed consent, the patient was brought to cardiac veterinary laboratory technician. The right radial artery was cannulated using micropuncture technique and a micropuncture wire passed easily then I placed a 5-Australian sheath. Subsequently I gave the patient 2 mg of verapamil IA and 10,000 units of heparin IV. Subsequently I did selective right and left coronary angiogram using JR4 and JL3.5 catheter. Left heart catheterization was performed using the JR4 which flipped into the LV then I did a pullback across aortic valve. The procedure was completed without any complication. SELECTIVE CORONARY ANGIOGRAM: 1. The RCA is a moderate caliber vessel. It is a nondominant vessel. It is angiographically normal. 2. The left main is angiographically normal. It bifurcates into left circumflex, ramus intermedius, and left anterior descending artery. 3. Left circumflex is a large caliber vessel. It is a dominant vessel. The left circumflex system is angiographically normal. 4. The ramus intermedius is angiographically normal. 5. The LAD: The LAD is angiographically normal. The LAD gives rise into first diagonal branch which appeared to be angiographically normal. After that, it gives rise into multiple septal jersey knitter branches. HEMODYNAMICS: The left ventricular end-diastolic pressure was 12 mmHg and no gradient was identified across the aortic valve. CONCLUSION: Normal coronary angiogram. POSTPROCEDURE MANAGEMENT: Maximize medical treatment and follow up with the patient. MMODL / IJN: [id number] /
[2017-12-24 13:59] VITALS: BP 120/63; PULSE 62; RESP 18
== END ==
LOC: CATHCVL 07:39
PROVIDERS: ATTEND Internal Medicine Interventional Cardiology
DX: I48.0 Paroxysmal atrial fibrillation (principal); I08.1 Rheumatic disorders of both mitral and tricuspid valves; I11.0 Hypertensive heart disease with heart failure; I42.9 Cardiomyopathy, unspecified; Z95.0 Presence of cardiac pacemaker; E66.9 Obesity, unspecified; Z68.41 Body mass index [BMI] 40.0-44.9, adult; I50.9 Heart failure, unspecified; M48.00 Spinal stenosis, site unspecified; Z79.01 Long term (current) use of anticoagulants; Z79.899 Other long term (current) drug therapy; Z79.82 Long term (current) use of aspirin
CPT/HCPCS: 93312; 93320; 93325; 93458; 92960; 80048; 85025; 85610; C1894; J2250; J2270; J2001; J3010; J1644; J2704; Q9967

== ENCOUNTER 2018-06-25 08:16 | Day surgery (SDC) | payer OTHER ==
[~2018-06-25 08:16] MED LIST changes: -ALPRAZolam 0.25 MG TAB PO PRN; -ALPRAZolam 0.5 MG TAB PO PRN; -ASPIRIN 325 MG TAB PO ONE; -ATORVASTATIN 80 MG TAB PO ONE; -HEPARIN SODIUM 1,000 UN/ML (10ML VL) IV ONE; -HEPARIN SODIUM 1,000 UN/ML (10ML VL) ONE; -IOPAMIDOL-370 125ML BTL INJ ONE; -LIDOCAINE 1% INJ 10MG/ML (20 ML MDV) ONE; -LIDOCAINE 1% INJ 10MG/ML (20 ML MDV) SQ ONE; -MIDAZOLAM 2 MG/2 ML VIAL IV ONE; -MIDAZOLAM 2 MG/2 ML VIAL ONE; -MORPHINE SULFATE 4 MG/ML SYRINGE IV ONE; -MORPHINE SULFATE 4 MG/ML SYRINGE ONE; -NITROGLYCERIN SL TABS 0.4 MG TAB SUBLINGUAL PRN; +PREMYELOGRAM MEDICATION REVIEW 1 EACH MISC PO NR; -PROPOFOL 10 MG/ML 20 ML VIAL IV ONE; -RX INFO: IV CONTRAST WAS GIVEN 1 EACH MISC MISCELLANE PRN; -SODIUM CHLORIDE 0.9% 1,000 ML IV ONE; -SODIUM CHLORIDE 0.9% 1,000 ML IV SCH; -SODIUM CHLORIDE 0.9% 1,000 ML in EMPTY BAG 1 BAG IV ONE; -VERAPAMIL 2.5 MG/ML 2 ML AMP ONE; -fentaNYL (PF) 50 MCG/ML 2 ML AMP IV ONE; -fentaNYL (PF) 50 MCG/ML 2 ML AMP ONE
[2018-06-25 08:47] VITALS: TEMP 98.3
[2018-06-25 08:52] LABS: Mean Platelet Volume 6.5; Platelet Count 242 k/uL (150-450)
[2018-06-25 08:59] LABS: Prothrombin Time 10.5 sec (9.0-12.0)
[2018-06-25] MEDS ORDERED: DIAZEPAM 5 MG TAB PO STA (09:10)
--- NOTE | 2018-06-25 11:01 | FL ---
EXAMINATION TYPE: FL myelogram 2 or more regions DATE OF EXAM: 06/25/2018 10:42 AM HISTORY: Lower extremity pain and numbness Informed consent was obtained and all the patient's questions were answered. The L3-L4 level was loc alized under fluoroscopy. Standard sterile technique was utilized as well as appropriate local anest hesia 1% Lidocaine and sodium bicarbonate. Despite numerous attempts at the obtaining access to the t hecal sac examination was unsuccessful and was terminated. IMPRESSION: Unsuccessful myelography of the lumbar spine. 8 min 18 sec fluoro approx 2 cc Isovue M 300 used
[2018-06-25 11:17] VITALS: BP 119/90; PULSE 122; RESP 16
== END 2018-06-25 11:27 | disposition home or self-care (01) ==
LOC: RADPROMAIN 08:16
DX: M48.00 Spinal stenosis, site unspecified (principal); Z53.8 Procedure and treatment not carried out for other reasons
CPT/HCPCS: 85049; 85610; 62305; Q9967; 62284

== ENCOUNTER → 2019-07-28 | Outpatient (CLI) | payer OTHER | END | disposition home or self-care (01) | LOC: LABWHC1 10:43 | PROVIDERS: ATTEND Internal Medicine Interventional Cardiology | DX: Z11.59 Encounter for screening for other viral diseases (principal) | CPT/HCPCS: 87635 ==

== ENCOUNTER → 2019-07-30 | Day surgery (SDC) | payer OTHER ==
[2019-07-29 08:19] VITALS: BMI 41.3
[~2019-07-30] MED LIST changes: +BENZOCAINE SPRAY 1 CAN MUCOUS MEM ONE; +KETAMINE 10 MG/ML 20 ML VIAL ONE; +MIDAZOLAM 2 MG/2 ML VIAL ONE; -PREMYELOGRAM MEDICATION REVIEW 1 EACH MISC PO NR; +PROPOFOL 10 MG/ML 20 ML VIAL IV ONE; +SODIUM CHLORIDE 0.9% 1,000 ML IV SCH
[2019-07-30 11:41] VITALS: TEMP 98.3
[2019-07-30 11:47] LABS: INR 3.8 (<1.2); Prothrombin Time 37.6 sec (9.0-12.0)
[2019-07-30 11:50] LABS: African American GFR (CKD) >90 (>60 ml/min/1.73 sqM); Anion Gap 9 mmol/L; Blood Urea Nitrogen 34 mg/dL (9-20); Calcium 9.4 mg/dL (8.4-10.2); Carbon Dioxide 23 mmol/L (22-30); Chloride 106 mmol/L (98-107); Glucose 104 mg/dL (74-99); Non-African American GFR(CKD) 83 (>60 ml/min/1.73 sqM); Sodium 138 mmol/L (137-145)
[2019-07-30 12:56] VITALS: RESP 16
--- NOTE | 2019-07-30 13:02 | P.PCN ---
Date of Procedure: 07/30/19 Operative Findings: TRANSESOPHAGEAL ECHOCARDIOGRAM PRESSURIZATION MECHANIC: BARRETT HELTON MD, RPVI INDICATION: Atrial fibrillation SEDATION: Conscious sedation COMPLICATION: None PROCEDURE DESCRIPTION: After obtaining an informed consent, the patient was brought to transesophageal echocardiogram room. Pulse oximetry and heart monitors were attached to the patient. The patient throat was sprayed using lidocaine. The patient was turned into left lateral position. After that a bite guard was placed. After an appropriate conscious sedation was initiated, the transesophageal echocardiogram was advanced through a bite guard into the mid esophagus. A 2-D echocardiogram images, color Doppler images, continuous wave images, pulse-wave images, of various cardiac structure were performed. After that the transesophageal echocardiogram probe was advanced into the stomach and fixed to obtain transgastric view was. The probe was brought into the mid esophagus. Inter-atrial septum was interrogated using 2D images, color Doppler images. After that transesophageal echocardiogram was withdrawn out and upon withdrawing the descending thoracic aorta all the way up to the arch was evaluated. FINDING: The left ventricle appeared to be dilated. The left ventricular systolic function appeared to be impaired with EF between 15-20%. The right ventricle appeared to be mildly dilated as well as. The left and right atrium are severely dilated. The left atrial appendage appeared to be free from any thrombus. The interatrial septum appeared to be intact by color flow Doppler. Aortic valve is trileaflet valve without stenosis or regurgitation. The mitral valve appeared to be thickened with evidence of moderate mitral regurgitation. There is moderate tricuspid regurgitation. The pulmonic valve was not well visualized. CONCLUSION: 1. Impaired LV function was EF between 15-20% with global hypokinesia and dilated ventricle 2. Severe biatrial enlargement 3. Intact interatrial septum without any thrombus 4. Moderate mitral regurgitation 5. Moderate tricuspid regurgitation 6. Trileaflet aortic valve without stenosis or regurgitation
--- NOTE | 2019-07-30 14:14 | CE ---
CARDIAC ELECTROPHYSIOLOGY REPORT DATE OF SERVICE: 07/30/2019 PERFORMING PHYSICIAN: Nicko Rush MD. PROCEDURE PERFORMED: Cardioversion. INDICATION: Atrial fibrillation. COMPLICATION: None. LEVEL OF SEDATION: The procedure was performed under general anesthesia with KEY CARRIER in the room. PROCEDURE DESCRIPTION: After transesophageal echocardiogram was performed and left intracardiac thrombus was ruled out, we pursued cardioversion. The patient cardioverted from atrial fibrillation to normal sinus mechanism using 200 joules on first attempt. CONCLUSION: Successful cardioversion of atrial fibrillation to normal sinus mechanism using 200 joules on first attempt. MMODL / IJN: [id number] /
[2019-07-30 14:30] VITALS: BP 107/62; PULSE 62
== END ==
LOC: CATHCVL 11:08
PROVIDERS: ATTEND Internal Medicine Interventional Cardiology
DX: I08.1 Rheumatic disorders of both mitral and tricuspid valves (principal); I48.0 Paroxysmal atrial fibrillation; I42.8 Other cardiomyopathies; I25.10 Atherosclerotic heart disease of native coronary artery without angina pectoris; I10 Essential (primary) hypertension; E78.5 Hyperlipidemia, unspecified; E66.9 Obesity, unspecified; Z95.0 Presence of cardiac pacemaker; Z79.01 Long term (current) use of anticoagulants; Z79.899 Other long term (current) drug therapy; Z79.1 Long term (current) use of non-steroidal anti-inflammatories (NSAID); Z90.89 Acquired absence of other organs; Z68.41 Body mass index [BMI] 40.0-44.9, adult
CPT/HCPCS: 93312; 93320; 93325; 92960; 80048; 85610; J2250; J2704

== ENCOUNTER 2019-08-26 07:41 | Day surgery (SDC) | payer OTHER ==
[2019-08-25 11:53] VITALS: BMI 40.1
[~2019-08-26 07:41] MED LIST changes: -BENZOCAINE SPRAY 1 CAN MUCOUS MEM ONE; -KETAMINE 10 MG/ML 20 ML VIAL ONE; +LACTATED RINGERS 1,000 ML IV SCH; -MIDAZOLAM 2 MG/2 ML VIAL ONE; -PROPOFOL 10 MG/ML 20 ML VIAL IV ONE
[2019-08-26] MEDS ORDERED: SODIUM CHLORIDE 0.9% 1,000 ML IV ONE (08:15)
[2019-08-26 08:41] LABS: INR 2.2 (<1.2); Prothrombin Time 20.9 sec (9.0-12.0)
[2019-08-26] MEDS ORDERED: NEOSTIGMINE 1 MG/ML 10 ML VIAL ONE (09:19)
[2019-08-26] MEDS ORDERED: PROPOFOL 10 MG/ML 20 ML VIAL IV ONE (09:19)
[2019-08-26] MEDS ORDERED: SUCCINYLCHOLINE CHLORIDE 100 MG/5 ML SYR IV ONE (09:19)
[2019-08-26] MEDS ORDERED: FUROSEMIDE 10 MG/ML 2 ML VIAL ONE (09:19)
[2019-08-26] MEDS ORDERED: ISOPROTERENOL 250 MCG/1.25 ML SYR IV ONE (09:19)
[2019-08-26] MEDS ORDERED: HYDROmorphone (PF) 1 MG/ML ONE (09:19)
[2019-08-26] MEDS ORDERED: HEPARIN SODIUM,PORCINE 10,000 UNIT/ML 1 ML VIAL ONE (09:19)
[2019-08-26] MEDS ORDERED: KETOROLAC 30 MG/ML 1 ML VIAL ONE (09:19)
[2019-08-26] MEDS ORDERED: PROTAMINE SULFATE 10 MG/ML 5 ML VIAL IV ONE (09:19)
[2019-08-26] MEDS ORDERED: LIDOCAINE 1% INJ 10MG/ML (20 ML MDV) ONE (09:19)
[2019-08-26] MEDS ORDERED: ROCURONIUM BROMIDE 10 MG/ML 5 ML VIAL IV ONE (09:19)
[2019-08-26] MEDS ORDERED: MIDAZOLAM 2 MG/2 ML VIAL ONE (09:19)
[2019-08-26] MEDS ORDERED: GLYCOPYRROLATE 0.2 MG/ML 2 ML VIAL ONE (09:19)
[2019-08-26] MEDS ORDERED: PHENYLEPHRINE-0.9% NACL SYG 1 MG/10 ML SYRINGE ONE (09:19)
[2019-08-26] MEDS ORDERED: fentaNYL (PF) 50 MCG/ML 2 ML AMP ONE (09:19)
[2019-08-26] MEDS ORDERED: IOPAMIDOL-250 50ML BTL IV ONE ×2 (10:06)
[2019-08-26] MEDS ORDERED: HEPARIN SOD,PORK IN 0.45% NACL 25,000 UNIT in 0.45% NACL 1 250ML.BAG IV ONE (10:09)
[2019-08-26] MEDS ORDERED: LIDOCAINE 1% INJ 10MG/ML (20 ML MDV) SQ ONE (10:19)
[2019-08-26] MEDS ORDERED: IOPAMIDOL-370 100ML BTL INJ ONE ×2 (11:49)
[2019-08-26] MEDS ORDERED: HEPARIN SODIUM (1,000 UNIT/ML) 1,000 UNIT in SODIUM CHLORIDE 0.9% 1,000 ML IRRIGATION ONE (11:56)
[2019-08-26] MEDS ORDERED: ACETAMINOPHEN TAB 325 MG TAB PO PRN (15:25)
[2019-08-26] MEDS ORDERED: ACETAMINOPHEN IV (For NPO) 1,000 MG in EMPTY BAG 1 BAG IVPB ONE (15:25)
[2019-08-26] MEDS ORDERED: HYDROcodone/APAP 5-325MG 1 EACH TAB PO PRN (15:25)
[2019-08-26] MEDS ORDERED: MAGNESIUM OXIDE 400 MG TAB PO PRN (15:26)
--- NOTE | 2019-08-26 15:44 | P.PCN ---
Preoperative Diagnosis: Diagnosis Atrial fibrillation, symptomatic, refractory to therapy Persistent A. fib Sick sinus syndrome status post dual-chamber pacemaker in the past, [employer] Result Severe cardiac rotation, difficult transseptal as of it would be performed in the heart with dextrocardia Left atrial appendage very difficult to visualize Left-sided pulmonary veins difficult to engage with the cryoablation on especially the left inferior since it was just posterior and in juxtaposition to the left atrial appendage Phrenic nerve paresis during right pulmonary vein isolation with cryoablation Full recovery of phrenic nerve function Successful pulmonary vein isolation of all veins using radiofrequency energy, wide nome antral isolation performed Complete entrance block in all 4 veins confirmed No evidence for phrenic nerve injury Easily inducible atrial flutter, typical Successful ablation of atrial flutter were termination followed by demonstration of bidirectional block with differential pacing with Isthmus conduction times greater than 210 ms Esophageal deflection YES , left-sided esophagus Electrical cardioversion with a synchronized shock across the chest NO Pacemaker interrogation and reprogramming before the procedure and reprogramming after the procedure Procedure details Patient was brought to the EP lab in a fasting state. Written informed consent was obtained prior to the procedure. Procedure performed under general anesthesia After initial muscle relaxant use, muscle relaxants were not given thereafter in order to assess phrenic nerve during procedure. Patient prepped and draped as per protocol Full cryo-set up with standard preparation of the cryoablation tools done. Femoral Venous access obtained on the right and left groins Venous and arterial Sheaths placed. Diagnostic catheters for the high right atrium, phrenic nerve stimulation and pacing, His bundle, RV and coronary sinus placed Intracardiac echo catheter placed. Long sheath placed in the right atrium Left and right transseptal catheterization performed under intracardiac echo guidance. Intravenous heparin with aCT above 300 Later, catheter positioning and balloon positioning in the left atrium, under intracardiac echo guidance Diagnostic EP study with Drug infusion Coronary sinus pacing and recording Baseline measurements sinus cycle length 810 ms, ME interval 294 ms, paced, QRS 131 and QT 408 ms AH interval 140 ms and HV interval 48 ms CS pacing performed Burst stimulation induced atrial flutter Left and right atrial mapping performed following wide nome antral isolation Transseptal catheterization performed RA pressure 15/9/12 LA pressure 18/9/13 Transseptal catheterization performed with standard sheath. The cryoablation sheath was then placed with an over the wire exchange without any acute complications. All 4 pulmonary veins were isolated in the following sequence: Left superior followed by left inferior followed by right superior followed by right inferior The cryo-ablation balloon was placed at the os of each vein 1.5 mL of IV dye was injected to confirm an occluded vein Goal during cryoablation was to achieve complete occlusion of the pulmonary vein, achieve -30 degrees C at 30 seconds and achieve -40 degrees C at 60 seconds and a time to effect of less than 60-90 seconds, . If not the balloon was repositioned to obtain this result After completion of Cryoblation with durations from 180-240 seconds, entrance block was confirmed with the Attain circular catheter in a roving fashion around the antrum of the pulmonary veins Phrenic nerve pacing was performed from the SVC, right innominate vein area and diaphragm voltage was monitored. Diaphragmatic contractions were also monitored manually for strength of contraction. Parameter goals for each cryo freeze Complete occlusion of the appropriate vein -30 degrees C by 30 seconds -40 degrees C by 60 seconds Minimum between minus 40-55 degrees C Thaw time greater than 10 seconds Balloon visualized by intracardiac echo The esophagus was intubated. Esophageal Temperature monitoring with a CIRCA catheter formed. Esophageal deflection for hypothermia of the esophagus below 30 degrees C Left superior pulmonary vein Complete isolation, entrance block Left inferior pulmonary vein, difficult access into this vein Complete isolation, entrance block Right superior pulmonary vein, during phrenic nerve pacing Complete isolation, entrance block but at about 150 seconds, phrenic nerve paresis noted Complete resolution within the next 5-10 minutes Right inferior pulmonary vein, cryoablation not performed RF ablation catheter used and wide nome antral isolation around the right- sided pulmonary veins was performed after testing for the phrenic nerve Complete entrance and exit block was noted Wide nome antral isolation around the left-sided veins was also performed with entrance and exit block Phrenic nerve stimulation was performed to confirm diaphragmatic stimulation the end of the procedure Cine fluoroscopy was performed at the very end of the procedure to confirm movement of both diaphragms with inspiration and expiration Following that burst stimulation the Aayush sinus was performed An atrial tachycardia was induced with concentric activation in the left atrium and negatively oriented waves in the inferior leads Activation mapping of the left atrium was performed Activation mapping of the right atrium was performed Counterclockwise activation was noted around the tricuspid annulus RF ablation was performed in the cavo tricuspid his symptoms were termination of the tachycardia Following that a complete line of block was made Following that bidirectional block was demonstrated with differential pacing Isthmus conduction time 210 ms in either direction At the end of the procedure the patient was extubated Heparin was reversed Venous sheaths were removed and hemostasis assured Procedures performed wide nome antral isolation followed by typical atrial flutter ablation Diagnostic EP study with attempted arrhythmia induction CS pacing and recording Left and right transseptal catheterization 3D mapping) Intracardiac echocardiography Pulmonary vein isolation with transseptal and comprehensive EPS, [id number] Ablation of discrete arrhythmia focus, + [id number] Drug Infusion +[id number] Extended duration procedure
--- NOTE | 2019-08-26 15:51 | P.PCN ---
Preoperative Diagnosis: Extended duration procedure The patient has significant and severe presentation Difficult transseptal It seemed as if it is a case of dextrocardia However we were able to successfully cross the interatrial septum is midportion in the fossa ovalis and placed LA catheter and sheath within the left atrium Entry into the left-sided veins was very difficult especially the left inferior vein It is very difficult to visualize the left atrial appendage. This was an juxtaposition chest anterior to the left inferior pulmonary vein Pheresis with right superior pulmonary vein cryoablation in 151 seconds Prior to that complete isolation had been noted within 61 seconds Switched RF ablation Wide tang[place]q antral isolation around all veins with complete isolation of the antral level Burst stimulation revealed an atrial tachycardia and cycle length of about 3 4360 ms 3-D electro-anatomic activation mapping of the left atrium performed 3-D and rundown mapping of the right atrium performed The circuit was around the tricuspid annulus and RF ablation resulting in termination followed by demonstration of complete block
--- NOTE | 2019-08-26 15:53 | P.PRLE ---
RE: Emilee Parisi Dear Brianna Patient underwent successful antral isolation of the pulmonary veins for management of atrial fibrillation Following that atrial fibrillation could not be induced but we did induce typical atrial flutter and this was also successfully ablated At this time he should continue all his current medications including anticoagulation Amiodarone dose is now down to 100 mg by mouth daily If he has no further episodes of atrial fibrillation in the next 3 months, then I would stop amiodarone at that point Thank you for entrusting me with the care of the patient Warm regards Sincerely Sudhakar Galarza
[2019-08-26] MEDS ORDERED: HYDROmorphone 1 MG/ML 1 ML SYRINGE IVP ONE (16:02)
[2019-08-26] MEDS: CARVEDILOL 6.25 MG TAB PO SCH (22:22)
--- NOTE | 2019-08-27 07:58 | P.DS ---
Providers Attending physician: Sudhakar Galarza Primary care physician: [facility] Course: Patient is sitting up in a chair. He has ability to the bathroom His sore throat is better than yesterday No chest discomfort no pleuritic chest discomfort no dizziness lightheadedness Rhythm is normal Twelve-lead ECG shows an atrial paced rhythm On examination afebrile pulse rate in the 70s blood pressure 129/76 mmHg Breath sounds are clear no rhonchi no crackles Normal heart sounds normal S1 normal S2 Abdomen soft No lower extremity edema No JVD Impression Persistent atrial fibrillation very symptomatic History of cardio myopathy likely related to atrial fibrillation and increased RV pacing during atrial fibrillation Ventricular pacing percentage is significantly lower in sinus rhythm than in atrial fibrillation History of atrial flutter Successful wide [place] antral isolation and on the pulmonary veins With cryoablation of the right-sided pulmonary vein this transient phrenic nerve paresis but this recovered completely and expeditiously Inducible atrial flutter status post successful ablation Plan Continue anticoagulation with Coumadin and continue amiodarone 100 mg by mouth daily for at least 3 months Continue cardio myopathy heart failure medications Discharge home later today Suture removal ( Device interrogation the office next week Plan - Discharge Summary Discharge Rx Participant: No New Discharge Prescriptions: Continue oxyCODONE-APAP 5-325MG [Percocet 5-325 mg] 1 tab PO TID PRN PRN Reason: Pain Vitamin B Complex 1 each PO BID Amiodarone [Cordarone] 100 mg PO DAILY Losartan [Cozaar] 25 mg PO DAILY Spironolactone [Aldactone] 25 mg PO DAILY Multivitamin [Multivitamins Adult Gummies] 2 each PO DAILY Warfarin [Coumadin] 6 mg PO DAILY Naproxen [Naprosyn] 500 mg PO BID PRN PRN Reason: Pain Magnesium Oxide [Mag-Ox] 400 mg PO DAILY PRN PRN Reason: MUSCLE CRAMPS Cholecalciferol [Vitamin D3 (25 Mcg = 1000 Iu)] 1,000 unit PO DAILY Ascorbic Acid/Ascorbate Sodium [Vitamin C 250 mg Tablet Chew] 250 mg PO DAILY Carvedilol [Coreg] 6.25 mg PO BID Furosemide [Lasix] 40 mg PO DAILY Discharge Medication List oxyCODONE-APAP 5-325MG [Percocet 5-325 mg] 1 tab PO TID PRN 10/17/17 [History] Amiodarone [Cordarone] 100 mg PO DAILY 12/17/17 [History] Losartan [Cozaar] 25 mg PO DAILY 12/17/17 [History] Multivitamin [Multivitamins Adult Gummies] 2 each PO DAILY 12/17/17 [History] Spironolactone [Aldactone] 25 mg PO DAILY 12/17/17 [History] Vitamin B Complex 1 each PO BID 12/17/17 [History] Naproxen [Naprosyn] 500 mg PO BID PRN 06/12/18 [History] Warfarin [Coumadin] 6 mg PO DAILY 06/12/18 [History] Ascorbic Acid/Ascorbate Sodium [Vitamin C 250 mg Tablet Chew] 250 mg PO DAILY 07/29/19 [History] Cholecalciferol [Vitamin D3 (25 Mcg = 1000 Iu)] 1,000 unit PO DAILY 07/29/19 [History] Magnesium Oxide [Mag-Ox] 400 mg PO DAILY PRN 07/29/19 [History] Carvedilol [Coreg] 6.25 mg PO BID 08/25/19 [History] Furosemide [Lasix] 40 mg PO DAILY 08/25/19 [History] Follow up Appointment(s)/Referral(s): Nicko Rush MD [STAFF PHYSICIAN] - 1 Week Activity/Diet/Wound Care/Special Instructions: Post EP study - Ablation instructions 1. Keep access sites dry for 2 days. 2. No heavy lifting or straining for 2 days. 3. Avoid bending the hips repeatedly for 2 days. 4. You may go up and down stairs slowly Call if the following is noted 1. Bleeding, increasing swelling or pain at the access sites. 2. Increasing chest discomfort, especially upon taking a deep breath. 3. Increasing shortness of breath, at rest or with exertion. 4. Undue cough / phlegm 5. Difficulty or pain while swallowing. 6. Pain or change in color in the extremities. 7. Fever, chills, rigors. 8. Increasing headache or neurologic symptoms. 9. Dizziness, fainting, palpitations Discharge Disposition: HOME SELF-CARE
[2019-08-27 08:45] LABS: INR 2.8 (<1.2); Prothrombin Time 27.1 sec (9.0-12.0)
[2019-08-27] MEDS ORDERED: SPIRONOLACTONE 25 MG TAB PO SCH (09:00)
[2019-08-27] MEDS ORDERED: LOSARTAN 25 MG TAB PO SCH (09:00)
[2019-08-27] MEDS ORDERED: COLCHICINE 0.6 MG EACH PO SCH (09:00)
[2019-08-27] MEDS ORDERED: AMIODARONE 100 MG TAB PO SCH (09:00)
[2019-08-27] MEDS: CARVEDILOL 6.25 MG TAB PO SCH (09:57)
[2019-08-27] MEDS: FUROSEMIDE 40 MG TAB PO SCH ×2 (09:58→10:00)
[2019-08-27 11:21] VITALS: BP 136/71; PULSE 67; RESP 20; TEMP 97.7
[2019-08-27] MEDS ORDERED: WARFARIN 3 MG TAB PO SCH (18:00)
== END 2019-08-27 11:55 | disposition home or self-care (01) ==
LOC: CATHEP 07:41 → 1SOBS 15:05 → CATHEP 08-27 11:55
PROVIDERS: ATTEND Internal Medicine Clinical Cardiac Electrophysiology
DX: I48.19 Other persistent atrial fibrillation (principal); I49.5 Sick sinus syndrome; I48.3 Typical atrial flutter; I11.0 Hypertensive heart disease with heart failure; I50.9 Heart failure, unspecified; I42.8 Other cardiomyopathies; E66.01 Morbid (severe) obesity due to excess calories; E78.5 Hyperlipidemia, unspecified; Z79.01 Long term (current) use of anticoagulants; Z79.02 Long term (current) use of antithrombotics/antiplatelets; Z79.899 Other long term (current) drug therapy; Z95.0 Presence of cardiac pacemaker; Z68.41 Body mass index [BMI] 40.0-44.9, adult
CPT/HCPCS: 85347; 93623; 93662; 93613; 93656; 93657; 85610 ×2; C1769 ×5; C1894 ×2; C1893; C1733; C1766; C1730; C1732; J2250; J2720; J1644 ×3; J1940; J2710; J0690; J2001; J3010; J1885; J1170; J2370; J0330; J2704; Q9966; Q9967

== ENCOUNTER → 2020-03-13 | Day surgery (SDC) | payer OTHER ==
[2020-03-06 13:22] VITALS: BMI 46.2
[~2020-03-13] MED LIST changes: +IOPAMIDOL-370 50ML BTL INJ ONE; -LACTATED RINGERS 1,000 ML IV SCH; +SODIUM CHLORIDE 0.9% 500 ML 500 ML IV ONE
[2020-03-13 10:29] VITALS: RESP 16; TEMP 98.6
[2020-03-13 11:19] LABS: INR 1.7 (<1.2); Prothrombin Time 17.1 sec (9.0-12.0)
--- NOTE | 2020-03-13 13:25 | P.PCN ---
Preoperative Diagnosis: Diagnosis RV pacing percentage greater than 40% Progressive nonischemic cardiomyopathy Patient has a dual-chamber pacemaker but with an ICD lead implanted initially Awaiting upgrade to biventricular ICD Procedures Left upper extremity venogram Cinefluoroscopy of the leads Cinefluoroscopy of the leads was performed atrial lead screwed in the right atrial appendage RV ICD lead in right ventricle, screw-in lead No fractures or breaks noted 15 mL of IV dye injected in the left upper extremity Cephalic, axillary, subclavian and innominate veins well-opacified. No significant stenosis Plan Proceed with upgrade to a biventricular ICD
[2020-03-13 16:04] VITALS: BP 145/67; PULSE 71
== END | disposition home or self-care (01) ==
LOC: CATHEP 09:56
PROVIDERS: ATTEND Internal Medicine Clinical Cardiac Electrophysiology
DX: I42.8 Other cardiomyopathies (principal); I42.0 Dilated cardiomyopathy; I11.0 Hypertensive heart disease with heart failure; I50.23 Acute on chronic systolic (congestive) heart failure; I48.0 Paroxysmal atrial fibrillation; E78.5 Hyperlipidemia, unspecified; Z95.0 Presence of cardiac pacemaker; Z79.01 Long term (current) use of anticoagulants; Z79.899 Other long term (current) drug therapy
CPT/HCPCS: 36005; 75820; 76000; 85610; Q9967

== ENCOUNTER 2020-04-11 11:07 | Day surgery (SDC) | payer OTHER ==
[2020-04-07 12:28] VITALS: BMI 45.6
[~2020-04-11 11:07] MED LIST changes: -IOPAMIDOL-370 50ML BTL INJ ONE; +LACTATED RINGERS 1,000 ML IV SCH; -SODIUM CHLORIDE 0.9% 500 ML 500 ML IV ONE
[2020-04-11] MEDS ORDERED: ceFAZolin 1 GM in SODIUM CHLORIDE 0.9% 250 ML IRRIGATION PRN (11:30)
[2020-04-11 11:53] LABS: Basophils # (A) 0.1 k/uL (0-0.2); Basophils % (A) 1 %; Eosinophils # (A) 0.1 k/uL (0-0.7); Eosinophils % (A) 2 %; HCT 43.6 % (39.0-53.0); HGB 14.7 gm/dL (13.0-17.5); Lymphocytes # (A) 1.3 k/uL (1.0-4.8); Lymphocytes % (A) 19 %; MCH 30.2 pg (25.0-35.0); MCHC 33.8 g/dL (31.0-37.0); MCV 89.2 fL (80.0-100.0); Mean Platelet Volume 6.9; Monocytes # (A) 0.3 k/uL (0-1.0); Monocytes % (A) 5 %; Neutrophils # (A) 4.8 k/uL (1.3-7.7); Neutrophils % (A) 72 %; Platelet Count 188 k/uL (150-450); RBC 4.89 m/uL (4.30-5.90); RDW 13.7 % (11.5-15.5); WBC 6.7 k/uL (3.8-10.6)
[2020-04-11 12:08] LABS: African American GFR (CKD) >90 (>60 ml/min/1.73 sqM); Anion Gap 9 mmol/L; Blood Urea Nitrogen 28 mg/dL (9-20); Calcium 9.4 mg/dL (8.4-10.2); Carbon Dioxide 27 mmol/L (22-30); Chloride 101 mmol/L (98-107); Glucose 110 mg/dL (74-99); Non-African American GFR(CKD) >90 (>60 ml/min/1.73 sqM); Potassium 4.7 mmol/L (3.5-5.1); Prothrombin Time 19.8 sec (9.0-12.0); Sodium 137 mmol/L (137-145)
[2020-04-11] MEDS ORDERED: LIDOCAINE 1% INJ 10MG/ML (20 ML MDV) ONE (12:33)
[2020-04-11] MEDS ORDERED: MIDAZOLAM 2 MG/2 ML VIAL ONE (12:35)
[2020-04-11] MEDS ORDERED: KETAMINE 10 MG/ML 20 ML VIAL ONE (12:35)
[2020-04-11] MEDS ORDERED: fentaNYL (PF) 50 MCG/ML 2 ML AMP ONE (12:35)
[2020-04-11] MEDS ORDERED: PROPOFOL 10 MG/ML 20 ML VIAL IV ONE (12:35)
[2020-04-11] MEDS ORDERED: IOPAMIDOL-250 50ML BTL IV ONE ×2 (12:52→14:27)
[2020-04-11] MEDS ORDERED: LIDOCAINE 1% INJ 10MG/ML (20 ML MDV) SQ ONE (13:27)
[2020-04-11] MEDS ORDERED: ACETAMINOPHEN TAB 325 MG TAB PO PRN (15:13)
[2020-04-11] MEDS ORDERED: FUROSEMIDE 40 MG TAB PO PRN (15:15)
[2020-04-11] MEDS ORDERED: LACTATED RINGERS 1,000 ML IV ONE (15:15)
[2020-04-11] MEDS ORDERED: ACETAMINOPHEN IV (For NPO) 1,000 MG in EMPTY BAG 1 BAG IVPB STA (15:43)
--- NOTE | 2020-04-11 18:33 | XR ---
EXAMINATION TYPE: XR chest 1V portable DATE OF EXAM: 04/11/2020 COMPARISON: 11/08/2017 HISTORY: Pacemaker insertion TECHNIQUE: FINDINGS: There is no heart failure. There is some elevation of the right diaphragm with mild linear density right lung base. There is no evidence of a pulmonary mass. There is left axillary pacemaker. There is no pleural effusion. IMPRESSION: Mild atelectasis right lung base similar to old exam. No obvious heart failure.
[2020-04-12 08:13] VITALS: BP 133/75; PULSE 59; RESP 17; TEMP 98
[2020-04-12] MEDS ORDERED: SPIRONOLACTONE 25 MG TAB PO SCH (09:00)
[2020-04-12] MEDS ORDERED: LOSARTAN 25 MG TAB PO SCH (09:00)
[2020-04-12] MEDS ORDERED: carvediloL 6.25 MG TAB PO SCH (09:00)
[2020-04-12] MEDS ORDERED: AMIODARONE 100 MG TAB PO SCH (09:00)
--- NOTE | 2020-04-12 09:49 | DS ---
DISCHARGE SUMMARY Emilee Parisi is doing well. He has no chest discomfort, dizziness, lightheadedness, and he is sore at his incision site and there is minimal soakage of the dressing. No hematoma. Heart sounds are normal. Lungs are clear to auscultation. No JVD. His chest x-ray does not show any evidence for pneumothorax. He has completed his antibiotics today. We will restart his Coumadin today. IMPRESSION: 1. Progressive cardiomyopathy with progressive heart failure symptoms class 3. 2. Increased RV pacing percentage with dual chamber pacing. 3. Underlying conduction system disease with prolonged CA interval and left bundle branch block pattern. 4. Status post upgrade to a biventricular ICD with LV lead pacing in the lateral vein, [employer]. PLAN: The patient may go home after device interrogation today and follow up with Dr. Rush and as well as the [facility] in 7 days. He will resume all his home medications including Coumadin. MMODL / IJN: [id number] /
--- NOTE | 2020-04-12 09:55 | LTR ---
April 12, 2020 Re: Emilee Parisi Dear [place]: Mr. Parisi underwent upgrade to a biventricular ICD with LV pacing for progressive heart failure, increasing RV pacing percentage with dual-chamber pacing. He is doing well today and will be discharged home on his heart failure medications as well as Coumadin. No changes in his medications have been made at this time. He will continue to follow with you and Dr. Rush as before. Thank you for entrusting me in the care of your patient. Warm regards. Sincerely, Sudhakar Galarza MD MMDAVEL / CARLOSN: [id number] /
--- NOTE | 2020-06-01 18:46 | CE ---
CARDIAC ELECTROPHYSIOLOGY REPORT This is a 69-year-old male patient of Dr. Rush who has progressive nonischemic cardiomyopathy. His RV pacing percentage has increased to about 50%. Previously his left ventricular ejection fraction was about 45%, but at present it is around 20%. He has no significant coronary artery disease. He has a history of atrial fibrillation, status post atrial fibrillation ablation as well as atrial flutter ablation. Despite maintenance of sinus rhythm, his LV function did not show any improvement. He was brought in for an upgrade to a biventricular ICD. The patient already has an ICD lead in the right ventricle as part of his pacemaker system. The patient was brought to the EP lab in a fasting state. Written informed consent was obtained prior to the procedure. The left shoulder area was prepped and draped as per protocol. Lidocaine 1% was used for local anesthesia. An incision was made in the left pectoral area and carried down to the level of the generator. The pacemaker generator was explanted. Axillary vein access was obtained and a sheath was placed in the right atrium. Via this, a catheter was placed in the coronary sinus and a sheath was placed in the coronary sinus. Coronary sinus venography was performed. Following that, a [employer] lead electrical engineer was placed in the lateral vein. This was a [employer], model #1458QL, 86 cm in length and serial #[id number]. Pacing threshold 0.75 V at 0.5 milliseconds, pacing impedance 760 ohms. Ten-volt test was negative. The sheaths were removed. The lead was secured to the underlying pectoralis fascia and a new generator was implanted. This was a [employer], model #SV8454-57L, serial #[id number]. The leads and the generator were then placed in the subfascial pocket and the wound was closed in 3 layers and dressed per protocol. RESULT: Successful explantation of a dual-chamber pacemaker generator, implantation of a new biventricular ICD, implantation of a new LV lead. Please note that the patient had a dual-chamber pacemaker but had an ICD lead in situ since the time of original implant. The patient tolerated the procedure well without any acute complications. Please note: DFT testing was withheld at this time and will be performed 3 months later. MMODL / IJN: [id number] /
== END 2020-04-12 11:54 | disposition home or self-care (01) ==
LOC: CATHEP 11:07 → 6NMEDSUR 15:34 → CATHEP 04-12 11:54
PROVIDERS: ATTEND Internal Medicine Clinical Cardiac Electrophysiology
DX: I48.91 Unspecified atrial fibrillation (principal); I48.92 Unspecified atrial flutter; I42.8 Other cardiomyopathies; I44.7 Left bundle-branch block, unspecified; I11.0 Hypertensive heart disease with heart failure; I50.9 Heart failure, unspecified; Z79.01 Long term (current) use of anticoagulants; Z79.891 Long term (current) use of opiate analgesic; Z79.899 Other long term (current) drug therapy
CPT/HCPCS: 33225; 33264; 80048; 85025; 85610; 71045; C1769 ×3; C1892; C1730; C1887; C1900; C1882; J2250; J0690 ×2; J2001; J3010; J0131; J2704; Q9966

== ENCOUNTER 2020-09-06 13:49 | Emergency (ER) | payer OTHER ==
[2020-09-06 13:58] VITALS: BP 120/58; PULSE 60; RESP 18; TEMP 98.1
--- NOTE | 2020-09-06 14:28 | ED ---
Extremity Problem HPI - General Chief complaint: Extremity Problem,Nontraumatic Stated complaint: RT leg issues Time Seen by Provider: 09/06/20 14:12 Source: patient, RN notes reviewed Mode of arrival: wheelchair Limitations: no limitations - History of Present Illness Initial comments: Patient is a 69-year-old male that presents to the emergency department for a DVT evaluation. He notes that his doctor at the [facility] sent him here to get an ultrasound to rule out DVT for some right lower extremity swelling. Patient notes that he has no history of clotting is on anticoagulation therapy with Coumadin. Patient denied any swelling or significant pain in his right lower extremities. He notes that he does have a bruise to the back of his calf but does not remember hitting anything. Patient denied any other complaints or issues at this time. He denied chest pain shortness breath headache nausea vomiting diarrhea constipation fever fatigue chills. - Related Data Home Medications Medication Instructions Recorded Confirmed oxyCODONE-APAP 5-325MG [Percocet 0.5 - 1 tab PO TID PRN 10/17/17 09/06/20 5-325 mg] Amiodarone [Cordarone] 100 mg PO MOWEFR 12/17/17 09/06/20 Losartan [Cozaar] 12.5 mg PO DAILY 12/17/17 09/06/20 Multivitamin [Multivitamins Adult 2 tab PO DAILY 12/17/17 09/06/20 Gummies] Spironolactone [Aldactone] 25 mg PO DAILY 12/17/17 09/06/20 Cholecalciferol [Vitamin D3 (25 25 mcg PO DAILY 07/29/19 09/06/20 Mcg = 1000 Iu)] Magnesium Oxide [Mag-Ox] 400 mg PO HS 07/29/19 09/06/20 Furosemide [Lasix] 40 mg PO DAILY PRN 08/25/19 09/06/20 carvediloL [Coreg] 6.25 mg PO DAILY 08/25/19 09/06/20 Naproxen [Naprosyn] 500 mg PO Q12HR PRN 03/06/20 09/06/20 Vitamin B Complex 1 cap PO DAILY 03/06/20 09/06/20 Albuterol Inhaler [Ventolin Hfa 1 - 2 puff INHALATION RT-QID PRN 04/07/20 09/06/20 Inhaler] Ascorbic Acid [Vitamin C] 500 mg PO DAILY 04/07/20 09/06/20 Fluticasone Propionate [Flonase 1 spray EA NOSTRIL DAILY PRN 04/07/20 09/06/20 Allergy Relief] Warfarin [Coumadin] 7.5 mg PO HS 04/07/20 09/06/20 Allergies Allergy/AdvReac Type Severity Reaction Status Date / Time No Known Allergies Allergy Verified 09/06/20 16:11 Review of Systems ROS Statement: Those systems with pertinent positive or pertinent negative responses have been documented in the HPI. ROS Other: All systems not noted in ROS Statement are negative. Past Medical History Past Medical History: Atrial Fibrillation, Heart Failure, Hypertension, Osteoarthritis (OA), Pneumonia Additional Past Medical History / Comment(s): Chronic low back pain; hx "bird flu" in 2016 w/ bilat pneumonias - damaged his lungs; sinusitis; hx BLE cellulitis/sepsis, occ edema lower legs, OA Rt hip/ bilat knees. Thyroid - elev blood testing being monitored. CMP. Pacemaker, c/o shortness of breath for past 2 months est. History of Any Multi-Drug Resistant Organisms: None Reported Past Surgical History: Back Surgery, Cardiac Ablation, Pacemaker, Tonsillectomy Additional Past Surgical History / Comment(s): 1988 back surgery x2 d/t injury, bronchoscopy with lavage, deviated septum surgery, cyst removed from back, Laminectomy 2018. Venogram, fluoroscopy of leads 03/13/20. Past Anesthesia/Blood Transfusion Reactions: No Reported Reaction Type of Cardiac Device: Permanent Pacemaker Device Placement Date:: 2016 Past Psychological History: No Psychological Hx Reported Smoking Status: Never smoker Past Alcohol Use History: Rare Past Drug Use History: None Reported - Past Family History Father Family Medical History: Cancer Additional Family Medical History / Comment(s): LEUKEMIA Mother Family Medical History: Memory Impairment Additional Family Medical History / Comment(s): at age 100 General Exam Limitations: no limitations General appearance: alert, in no apparent distress Head exam: Present: atraumatic, normocephalic, normal inspection Eye exam: Present: normal appearance, PERRL, EOMI. Absent: scleral icterus, conjunctival injection, periorbital swelling Neck exam: Present: normal inspection Respiratory exam: Present: normal lung sounds bilaterally. Absent: respiratory distress, wheezes, rales, rhonchi, stridor Cardiovascular Exam: Present: regular rate, normal rhythm, normal heart sounds. Absent: systolic murmur, diastolic murmur, rubs, gallop, clicks Right Lower Leg exam: Present: normal inspection, full ROM, tenderness (Over the bruise on the posterior calf), ecchymosis (Posterior aspect on the calf). Absent: swelling, erythema Neurological exam: Present: alert, oriented X3 Psychiatric exam: Present: normal affect, normal mood Skin exam: Present: warm, dry, intact, normal color. Absent: rash Course Vital Signs 09/06/20 13:55 Temperature 98.1 F Pulse Rate 60 Respiratory 18 Rate Blood Pressure 120/58 O2 Sat by Pulse 98 Oximetry Medical Decision Making - Medical Decision Making 69-year-old male sent by the ID clinic to rule out a DVT. Labs, right lower extremity ultrasound ordered. Labs unremarkable. Ultrasound negative for DVT. Patient most likely complaining of bruise pain. Case discussed with Dr. Swan, patient can discharge home with follow-up to primary care. - Lab Data Result diagrams: 09/06/20 14:44 09/06/20 14:44 Lab Results 09/06/20 09/06/20 09/06/20 Range/Units 14:44 14:44 14:44 WBC 8.3 (3.8-10.6) k/uL RBC 4.66 (4.30-5.90) m/uL Hgb 13.7 (13.0-17.5) gm/dL Hct 40.9 (39.0-53.0) % MCV 87.7 (80.0-100.0) fL MCH 29.3 (25.0-35.0) pg MCHC 33.4 (31.0-37.0) g/dL RDW 13.2 (11.5-15.5) % Plt Count 185 (150-450) k/uL MPV 7.4 Neutrophils % 72 % Lymphocytes % 21 % Monocytes % 3 % Eosinophils % 2 % Basophils % 0 % Neutrophils # 6.0 (1.3-7.7) k/uL Lymphocytes # 1.8 (1.0-4.8) k/uL Monocytes # 0.3 (0-1.0) k/uL Eosinophils # 0.1 (0-0.7) k/uL Basophils # 0.0 (0-0.2) k/uL PT 29.8 H (9.0-12.0) sec INR 3.1 H (<1.2) APTT 41.5 H (22.0-30.0) sec Sodium 139 (137-145) mmol/L Potassium 4.9 (3.5-5.1) mmol/L Chloride 104 (98-107) mmol/L Carbon Dioxide 26 (22-30) mmol/L Anion Gap 9 mmol/L BUN 27 H (9-20) mg/dL Creatinine 0.75 (0.66-1.25) mg/dL Est GFR (CKD-EPI)AfAm >90 (>60 ml/min/1.73 sqM) Est GFR (CKD-EPI)NonAf >90 (>60 ml/min/1.73 sqM) Glucose 150 H (74-99) mg/dL Calcium 9.2 (8.4-10.2) mg/dL Total Bilirubin 0.8 (0.2-1.3) mg/dL AST 44 (17-59) U/L ALT 26 (4-49) U/L Alkaline Phosphatase 94 (38-126) U/L Total Protein 7.0 (6.3-8.2) g/dL Albumin 4.1 (3.5-5.0) g/dL - Radiology Data Radiology results: report reviewed, image reviewed Right lower extremity ultrasound: Negative for DVT. Disposition Clinical Impression: Traumatic ecchymosis of right lower leg Disposition: HOME SELF-CARE Condition: Stable Instructions (If sedation given, give patient instructions): Leg Pain (ED) Additional Instructions: Please return to the Emergency Department if symptoms worsen or any other concerns. Follow-up primary care as needed. Continue take at home medications as prescribed. Is patient prescribed a controlled substance at d/c from ED?: No Referrals: [facility],Clinic [Primary Care Provider] - 1-2 days Time of Disposition: 16:44
[2020-09-06 15:26] LABS: Basophils % (A) 0 %; Eosinophils # (A) 0.1 k/uL (0-0.7); Eosinophils % (A) 2 %; HCT 40.9 % (39.0-53.0); HGB 13.7 gm/dL (13.0-17.5); Lymphocytes # (A) 1.8 k/uL (1.0-4.8); Lymphocytes % (A) 21 %; MCH 29.3 pg (25.0-35.0); MCHC 33.4 g/dL (31.0-37.0); MCV 87.7 fL (80.0-100.0); Mean Platelet Volume 7.4; Monocytes # (A) 0.3 k/uL (0-1.0); Monocytes % (A) 3 %; Neutrophils % (A) 72 %; Platelet Count 185 k/uL (150-450); RBC 4.66 m/uL (4.30-5.90); RDW 13.2 % (11.5-15.5); WBC 8.3 k/uL (3.8-10.6)
[2020-09-06 15:34] LABS: INR 3.1 (<1.2); Partial Thromboplastin Time 41.5 sec (22.0-30.0); Prothrombin Time 29.8 sec (9.0-12.0)
[2020-09-06 15:39] LABS: ALT 26 U/L (4-49); AST 44 U/L (17-59); African American GFR (CKD) >90 (>60 ml/min/1.73 sqM); Albumin 4.1 g/dL (3.5-5.0); Alkaline Phosphatase 94 U/L (38-126); Anion Gap 9 mmol/L; Blood Urea Nitrogen 27 mg/dL (9-20); Calcium 9.2 mg/dL (8.4-10.2); Carbon Dioxide 26 mmol/L (22-30); Chloride 104 mmol/L (98-107); Glucose 150 mg/dL (74-99); Non-African American GFR(CKD) >90 (>60 ml/min/1.73 sqM); Sodium 139 mmol/L (137-145); Total Bilirubin 0.8 mg/dL (0.2-1.3)
[2020-09-06 15:56] LABS: Potassium 4.9 mmol/L (3.5-5.1)
--- NOTE | 2020-09-06 16:10 | US ---
EXAMINATION TYPE: US venous doppler duplex LE RT DATE OF EXAM: 09/06/2020 3:42 PM COMPARISON: 6 x 14 CLINICAL HISTORY: RLE swelling. On Coumadin. Swelling. SIDE PERFORMED: Right TECHNIQUE: The lower extremity deep venous system is examined utilizing real time linear array sonog jj with graded compression, doppler sonography and color-flow sonography. VESSELS IMAGED: Common Femoral Vein Deep Femoral Vein Greater Saphenous Vein * Femoral Vein Popliteal Vein Small Saphenous Vein * Proximal Calf Veins (* superficial vessels) Right Leg: Negative for DVT IMPRESSION: 1. No evidence of deep venous thrombosis of the right lower extremity veins.
== END 2020-09-06 17:03 | disposition home or self-care (01) ==
LOC: EC 13:49
DX: S80.11XA Contusion of right lower leg, initial encounter (principal); I11.0 Hypertensive heart disease with heart failure; I50.9 Heart failure, unspecified; I48.91 Unspecified atrial fibrillation; Z79.01 Long term (current) use of anticoagulants; Z79.1 Long term (current) use of non-steroidal anti-inflammatories (NSAID); Z95.0 Presence of cardiac pacemaker; X58.XXXA Exposure to other specified factors, initial encounter
CPT/HCPCS: 36415; 80053; 85025; 85610; 85730; 99284

== ENCOUNTER → 2020-11-07 | Outpatient (CLI) | payer OTHER ==
[2020-11-08 03:06] LABS: Hemoglobin A1C 5.3 % (4.0-6.0)
== END | disposition home or self-care (01) ==
LOC: LABWHC1 15:48
PROVIDERS: ATTEND Orthopaedic Surgery
DX: Z01.812 Encounter for preprocedural laboratory examination (principal)
CPT/HCPCS: 36415; 82040; 83036; 87070

== ENCOUNTER → 2020-11-29 | Outpatient (CLI) | payer OTHER ==
[2020-11-29 11:54] LABS: Appearance,Urine Clear (Clear); Bilirubin,Urine Negative (Negative); Blood,Urine Negative (Negative); Color,Urine Yellow; Glucose,Urine (UA) Negative (Negative); Ketones,Urine Negative (Negative); Leukocyte Esterase,Urine Negative (Negative); Nitrite,Urine Negative (Negative); Protein,Urine Negative (Negative); Specific Gravity,Urine 1.017 (1.001-1.035); Urobilinogen,Urine <2.0 mg/dL (<2.0)
[2020-11-29 16:15] LABS: HCT 41.3 % (39.6-50.0); HGB 13.7 g/dL (13.0-17.0); MCH 29.9 pg (27.0-32.0); MCHC 33.2 g/dL (32.0-37.0); MCV 90.2 fL (80.0-97.0); Mean Platelet Volume 9.8 fL (9.5-12.2); Platelet Count 198 X 10*3/uL (140-440); RBC 4.58 X 10*6/uL (4.40-5.60); RDW 13.2 % (11.5-14.5); WBC 6.36 X 10*3/uL (4.50-10.00)
[2020-11-29 20:52] LABS: African American GFR (CKD) 99.9 (60.0-200.0); Albumin 4.4 g/dL (3.80-4.90); Albumin/Globulin Ratio 1.91 (1.60-3.17); Anion Gap 11.3 mmol/L (4.00-12.00); BUN/Creat Ratio 22.22 Ratio (12.00-20.00); Calcium 9.1 mg/dL (8.7-10.3); Carbon Dioxide 22.7 mmol/L (21.6-31.8); Globulin 2.3 g/dL (1.6-3.3); Magnesium 1.7 mg/dL (1.5-2.4); Non-African American GFR(CKD) 86.2 (60.0-200.0); Potassium 4.3 mmol/L (3.5-5.5); Total Bilirubin 0.7 mg/dL (0.3-1.2); Total Protein 6.7 g/dL (6.2-8.2)
== END | disposition home or self-care (01) ==
LOC: LABWHC1 11:13
PROVIDERS: ATTEND Nurse Practitioner Adult Health
DX: I10 Essential (primary) hypertension (principal); R35.0 Frequency of micturition
CPT/HCPCS: 36415; 80053; 81003; 83735; 85027; 87086

== ENCOUNTER 2022-05-29 09:27 | Day surgery (SDC) | payer OTHER ==
[2022-05-24 14:18] VITALS: BMI 36.6
--- NOTE | 2022-05-27 13:26 | P.HPOR ---
History of Present Illness H&P Date: 05/27/22 Chief Complaint: Right carpal tunnel syndrome Subjective: This is a 71 year old male that presents today for initial evaluation regarding a several year history of progressively worsening right hand paresthesias in the thumb, index, middle and ring fingers with associated weakness. The patient has tried bracing in the past with minimal relief. They deny any inciting event or neck pain. he has a history of a left open carpal tunnel release performed by Dr. Trevino around 5 years ago and got good relief from his symptoms. He denies any neck pain, but states that he has severe symptoms in the hand, specifically while sleeping at nighttime. Physical Examination: RUE: AIN/PIN/Radial/Ulnar/Median motor intact. Radial/Ulnar/Median SILT. 2+/4 Radial/Ulnar pulses palpated. 0/5 APB with thenar waisting present, 5/5 FDI. Negative Finkelsteins, negative CMC grind, positive Durkan's compression. EMG/NCV: Right carpal tunnel syndrome, severe. C5/6 nerve root irritation Impression: 1.) Right carpal tunnel syndrome, severe. Plan: Diagnosis and treatment options were discussed with the patient. The patient has failed conservative treatment and would like to pursue a right endoscopic vs open carpal tunnel release. We had a lengthy discussion regarding the severity of his symptoms and that carpal tunnel release surgery with severe carpal tunnel syndrome with associated atrophy is less predictable in terms of nerve recovery and that he would likely not get complete relief or possible not even notice any relief of his symptoms and the main goal is to prevent progression of disease. Risks and benefits of surgery including bleeding, infection, damage to surrounding tissue, need for further surgery, possible need to convert to open procedure, residual numbness were discussed and the patient wished to go forward with surgery. PCP clearance is requested. Follow up: 2 weeks post op -Lasha Jamil DO Orthopedic Hand/Upper Extremity Surgeon Past Medical History Past Medical History: Atrial Fibrillation, Heart Failure, Hypertension, Osteoarthritis (OA) Additional Past Medical History / Comment(s): Chronic low back pain; hx "bird flu" in 2016 w/ bilat pneumonias - damaged his lungs; sinusitis; occ edema lower legs, OA Rt hip/ bilat knees. CMP. Pacemaker, c/o shortness of breath for past 2 months est. History of Any Multi-Drug Resistant Organisms: None Reported Past Surgical History: AICD, Back Surgery, Cardiac Ablation, Joint Replacement, Pacemaker, Tonsillectomy Additional Past Surgical History / Comment(s): 1988 back surgery x2 d/t injury, bronchoscopy with lavage, deviated septum surgery, cyst removed from back, Laminectomy 2018. Venogram, fluoroscopy of leads 03/13/20. AICD/[id number]-5/2/2021, 1ST PACEMAKER REMOVED, BILAT KRISTEN, Past Anesthesia/Blood Transfusion Reactions: No Reported Reaction Type of Cardiac Device: Permanent Pacemaker Device Placement Date:: 2016 Smoking Status: Never smoker - Past Family History Father Family Medical History: Cancer Additional Family Medical History / Comment(s): LEUKEMIA Mother Family Medical History: Memory Impairment Additional Family Medical History / Comment(s): at age 100 Medications and Allergies Home Medications Medication Instructions Recorded Confirmed Type Amiodarone [Cordarone] 100 mg PO MOWEFR 12/17/17 05/24/22 History Losartan [Cozaar] 12.5 mg PO DAILY 12/17/17 05/24/22 History Multivitamin [Multivitamins Adult 2 tab PO DAILY 12/17/17 05/24/22 History Gummies] Spironolactone [Aldactone] 25 mg PO DAILY 12/17/17 05/24/22 History carvediloL [Coreg] 6.25 mg PO DAILY 08/25/19 05/24/22 History Apixaban [Eliquis] 5 mg PO BID 05/24/22 05/24/22 History Allergies Allergy/AdvReac Type Severity Reaction Status Date / Time amlodipine AdvReac Itching Verified 05/24/22 14:24 duloxetine AdvReac RESLESSNESS Verified 05/24/22 14:24 /INSOMNIA gabapentin AdvReac NIGHTMARES, Verified 05/24/22 14:24 FATIGUE lisinopril AdvReac BRADYCARDIA Verified 05/24/22 14:24 Physical Examination Osteopathic Statement: *. No significant issues noted on an osteopathic structural exam other than those noted in the History and Physical/Consult.
[~2022-05-29 09:27] MED LIST changes: +HYDROmorphone 0.5 MG/0.5 ML SYRINGE IVP PRN; +LIDOCAINE 1% (10MG/ML) FOR IV START INTRADERMA PRN; -SODIUM CHLORIDE 0.9% 1,000 ML IV SCH
[2022-05-29 10:01] VITALS: TEMP 97.5
[2022-05-29] MEDS ORDERED: MIDAZOLAM 2 MG/2 ML VIAL ONE (10:20)
[2022-05-29] MEDS ORDERED: fentaNYL (PF) 50 MCG/ML 2 ML AMP ONE (10:20)
[2022-05-29] MEDS ORDERED: LIDOCAINE 2% INJ 20 MG/ML (2 ML VIAL) ONE (10:20)
[2022-05-29] MEDS ORDERED: PROPOFOL 10 MG/ML 20 ML VIAL IV ONE (10:20)
[2022-05-29] MEDS ORDERED: BUPIVACAINE (PF) 0.5% 30 ML VIAL SQ ONE ×3 (10:24→10:29)
[2022-05-29] MEDS ORDERED: LIDOCAINE 1% INJ 10MG/ML (20 ML MDV) SQ ONE ×3 (10:24→10:29)
--- NOTE | 2022-05-29 10:52 | P.OP ---
Date of Procedure: 05/29/22 Preoperative Diagnosis: Right carpal tunnel syndrome Postoperative Diagnosis: Right carpal tunnel syndrome Procedure(s) Performed: Right endoscopic carpal tunnel release Anesthesia: MAC Surgeon: Lasha Jamil Estimated Blood Loss (ml): 0 Pathology: none sent Condition: stable Disposition: PACU Description of Procedure: This is a 71 year old male who presents today for a right endoscopic carpal tunnel release after having failed conservative treatment in the past. Risks and benefits of surgery were discussed with the patient including bleeding, damage to surrounding tissue, infection, need to convert to open procedure, need for further surgery as well as risks of anesthesia including pulmonary embolism and even and the patient wished to proceed with surgical intervention. The patients was seen in the pre-operative area by myself. Consent and H&P were completed and updated. The correct extremity was marked in the pre-operative area by myself and all other questions were answered. Operative Narrative: The patient was brought to the operating room by the department of anesthesia. They remained on the portable stretcher and a rolling hand table was brought to the side of the operative extremity. Pre-operative time out was performed indicating the correct patient, procedure and laterality. All in the room agreed. The patient was then drifted off to sleep by the department of anesthesia. MAC anesthesia was utilized and a 50:50 mixture of 1% Lidocaine and 0.5% bupivacaine was injected into the subcutaneous tissues of the palmar skin, 8ccs total. A nonsterile tourniquet was then applied to the operative extremity and the right upper extremity was then prepped and draped in normal sterile fashion. The operative extremity was the exsanguinated with an esmarch bandage and the tourniquet was inflated to 250mmHg. 15 blade scalpel was utilized to make a transverse incision on the palmar skin just ulnar to the palmaris longus tendon at the level of the distal wrist crease. Ragnell retractor was then placed radially and blunt dissection was performed to reveal the distal forearm fascia. This was lifted with fine Ja pick ups and Littler tenotomy scissors were then used to open the forearm fascia transversely and a double skin hook was then placed. Hamate finder was placed into the carpal tunnel and then sequential sized dilators were inserted followed by the synovial elevator to separate the flexor tenosynovium from the undersurface of the transverse carpal ligament and a washboard texture was felt. The Micro[employer]ire endoscopic carpal tunnel release system gun was the then inserted into the carpal tunnel hugging the deep portion of the transverse carpal ligament in line with the base of the ring finger. Transverse fibers of the ligament were directly visualized. Pressure was applied on the palm to reveal the distal extent of the transverse carpal ligament. The blade was then deployed and the distal half of the transverse carpal ligament was released. The scope was then brought distal again and remaining transverse fibers were incised with the blade. The proximal half of the transverse carpal ligament was then divided and again the scope was advanced distal and remaining transverse fibers were incised with the blade. The radial and ulnar leaflets were directly visualized and mobile consistent with complete release. Tenotomy scissors were then utilized to release the remaining distal forearm fascia under direct visualization taking care to preserve the palmar cutaneous branch of the median nerve. Skin closure was performed with interrupted 4-0 Monocryl suture followed by Mastisol and steri strips. Sterile dressing was applied consisting of adaptic, 4x4s, Webril, and an diamond bandage. Tourniquet was let down and the hand immediately was well perfused. The patient was then woken by the department of anesthesia and transferred to PACU in stable condition. Matthew MILAN was present for the case in its entirety and assisted in major portions of the case and protection of vital neurovascular structures. Lasha Jamil D.O. Orthopedic Hand/Upper Extremity Surgeon
[2022-05-29 10:58] VITALS: RESP 16
[2022-05-29 11:09] VITALS: PULSE 60
[2022-05-29 11:47] VITALS: BP 115/61
== END 2022-05-29 12:03 | disposition home or self-care (01) ==
LOC: OR 09:27
PROVIDERS: ATTEND Orthopaedic Surgery Hand Surgery
DX: G56.01 Carpal tunnel syndrome, right upper limb (principal); I48.91 Unspecified atrial fibrillation; I11.0 Hypertensive heart disease with heart failure; I50.9 Heart failure, unspecified; J18.9 Pneumonia, unspecified organism; E66.9 Obesity, unspecified; Z68.38 Body mass index [BMI] 38.0-38.9, adult; M17.0 Bilateral primary osteoarthritis of knee; M16.11 Unilateral primary osteoarthritis, right hip; Z86.19 Personal history of other infectious and parasitic diseases; Z87.09 Personal history of other diseases of the respiratory system; Z98.1 Arthrodesis status; Z96.643 Presence of artificial hip joint, bilateral; Z98.890 Other specified postprocedural states; Z95.810 Presence of automatic (implantable) cardiac defibrillator; Z83.2 Family history of diseases of the blood and blood-forming organs and certain disorders involving the immune mechanism; Z81.8 Family history of other mental and behavioral disorders; Z79.01 Long term (current) use of anticoagulants; Z88.8 Allergy status to other drugs, medicaments and biological substances; Z79.899 Other long term (current) drug therapy
CPT/HCPCS: 29848; J2250; J2001 ×2; J3010; J2704